=== PATIENT | female | born 1985 | race Caucasian/White ===

== ENCOUNTER → 2018-08-15 07:56 | Outpatient (CLI) | payer OTHER, SELFPAY ==
--- NOTE | 2018-08-15 | DI.US.S_ITS ---
PROCEDURE: US PELVIC COMPLETE INDICATIONS: IRREGULAR VAGINAL BLEEDING TECHNIQUE: Real-time scanning was performed of the pelvic organs, with image documentation. Additional endovaginal scanning was necessary due to incomplete visualization of the adnexal and endometrial structures by transabdominal scanning. COMPARISON: [facility], , PELVIC COMPLETE, 12/17/2015, 7:37. FINDINGS: Transabdominal scanning: Limited scanning through the kidneys shows no hydronephrosis. No pathologic free abdominal or pelvic fluid. Endovaginal scanning: Uterus: Uterus is normal in size at 7.4 x 6.3 x 5.6 cm. The endometrium measures 15.7 mm in combined thickness. Ovaries: Normal ovaries bilaterally measuring 3.8 x 2.2 x 2.3 cm on the right and 3.4 x 2.0 x 3.2 cm and the left. No adnexal masses seen. IMPRESSION: 1. Prominence of the endometrial complex. Recommend short term follow pelvic ultrasound in 6-12 weeks to assess for interval thinning. Dictated by: Fidel GOODMAN Interpreted: Aileen Maldonado MD on 08/15/2018 at 8:41 Approved by: Aileen Maldonado M.D. on 08/16/2018 at 11:48
== END ==
PROVIDERS: Family Provider Family Medicine; PCP Family Medicine; Visit Provider Family Medicine
DX: N92.6 Irregular menstruation, unspecified (principal)
CPT/HCPCS: 76830; 76856

== ENCOUNTER → 2018-09-10 07:19 | Outpatient (CLI) | payer OTHER, SELFPAY ==
--- NOTE | 2018-09-10 | DI.US.S_ITS ---
PROCEDURE: US PELVIC COMPLETE INDICATIONS: DYSFUNCTIONAL UTERINE BLEEDING TECHNIQUE: Real-time scanning was performed of the pelvic organs, with image documentation. Additional endovaginal scanning was necessary due to incomplete visualization of the adnexal and endometrial structures by transabdominal scanning. COMPARISON: [facility], , US PELVIC COMPLETE, 08/15/2018, 8:05. FINDINGS: Transabdominal scanning: Kidneys not evaluated. No pathologic free abdominal or pelvic fluid. Endovaginal scanning: Uterus: Uterus is normal in size at 8.3 x 4.9 x 6.6 cm. The endometrium measures 7.9 mm in combined thickness. Ovaries: Ovaries normal bilaterally, with simple cyst involving the left ovary measuring 23 mm. IMPRESSION: 1. Normal endometrial thickness measuring 8.0 mm. Dictated by: Fidel Fritz [facility] Interpreted: Haris Borja MD on 09/10/2018 at 8:17 Approved by: Haris Borja M.D. on 09/10/2018 at 14:19
== END ==
PROVIDERS: Family Provider Family Medicine; PCP Family Medicine; Visit Provider Family Medicine
DX: N93.8 Other specified abnormal uterine and vaginal bleeding (principal)
CPT/HCPCS: 76830; 76856

== ENCOUNTER → 2019-05-21 10:22 | Outpatient (CLI) | payer OTHER, SELFPAY | PROVIDERS: Family Provider Family Medicine; PCP Family Medicine | DX: Z23 Encounter for immunization (principal) | CPT/HCPCS: 90471; 90686 ==

== ENCOUNTER → 2020-02-05 07:14 | Outpatient (CLI) | payer OTHER, SELFPAY ==
--- NOTE | 2020-02-05 | DI.US.S_ITS ---
PROCEDURE: US OB <= 14 WEEKS FETUS INDICATIONS: DATES OUTSIDE/PRIOR DATING DATA: Last menstrual period (LMP): 12/16/19 LMP-based estimated date of delivery (DAVID): 09/21/20 . First dating scan (date and location): This study, 02/05/20 . Estimated date of delivery (DAVID) from first dating scan: 09/21/20 . TECHNIQUE: Real-time scanning was performed of the fetus and maternal pelvic organs, with image documentation. Endovaginal scanning was also performed to better visualize the fetus and maternal ovaries. COMPARISON: None. FINDINGS: Embryo: 1.1 cm crown-rump length, cardiac activity at 147 beats per minute was observed. Measurement variability in dating: +/- 4 weeks by LMP, +/- 7 days by mean sac diameter (use before 6 weeks gestation if crown-rump length not able to be measured), +/- 5 days by crown-rump length (up to 8 weeks 6 days gestation), +/- 7 days by crown-rump length (up to 13 weeks 6 days gestation). Maternal organs: Ovaries contain bilateral complex cysts containing low level internal echoes, measuring up to 2.8 cm on the right and 2.6 x 2.7 x 5.0 cm on the left. Limited images through the kidneys demonstrate no hydronephrosis. IMPRESSION: Single living intrauterine gestation with projected date of delivery centered on 09/21/20. Note is made of bilateral complex ovarian cysts, containing low-level internal echoes. Attention to confirm resolution of these structures over the course of the is recommended. Dictated by: Haris Borja M.D. on 02/05/2020 at 9:58 Approved by: Haris Borja M.D. on 02/05/2020 at 10:02
== END ==
PROVIDERS: Family Provider Family Medicine; PCP Family Medicine; Referring Provider Family Medicine; Visit Provider Family Medicine
DX: Z36.87 Encounter for antenatal screening for uncertain dates (principal); O34.81 Maternal care for other abnormalities of pelvic organs, first trimester; N83.292 Other ovarian cyst, left side; N83.291 Other ovarian cyst, right side; Z3A.01 Less than 8 weeks gestation of pregnancy
CPT/HCPCS: 76801; 76817

== ENCOUNTER 2020-05-04 07:50 | Emergency (ER) | payer OTHER, SELFPAY ==
[2020-05-04] VITALS (14 sets, daily range): BP systolic 88–121; BP diastolic 60–76; PULSE 85–131; RESP 11–39; TEMP 36.8; O2SAT 98–100; BMI 26.5
--- NOTE | 2020-05-04 08:24 | ED.ARRPALP ---
HPI - Arrhythmia/Palpitations General Chief Complaint: Arrhythmia/Palpitations Stated Complaint: sent by fanny for cardiac workup,20 week preg Time Seen by Provider: 05/04/20 08:10 Source: patient Mode of arrival: Ambulatory Limitations: no limitations History of Present Illness HPI narrative: Patient works at this hospital. Patient is 20 weeks . Patient is and a5. Primary care doctors many sent patient here for complaints of palpitations/dizziness that occurred at 6:20 a.m. this morning. Patient feels better. Patient states her heart rate was 210 at 1 point. She has a apple watch with cardiac/heart beat monitoring. Patient states feels much better now. Heart rate 125. Patient states has been progressing well. No preeclampsia. Patient denies any history of high blood pressure or hypercholesteremia. No history arrhythmias. No family history of arrhythmias. Patient denies any history of PE or DVTs. No thyroid problems. Has not been sick. No nausea vomiting diarrhea. Keeps herself very well hydrated. No abdominal pain. Patient states feels baby still moving. No vaginal discharge fluid leak or vaginal bleeding. No back pain no chest pain no abdominal pain. No syncope. One week ago had 1 episode of dizziness and felt very faint, no syncope. Reviewed with patient differential for tachycardia. At this time she does not want to do CT scan imaging or radiographic imaging is not indicated. Does not want exposure radiation for baby. Related Data Home Medications Medication Instructions Recorded Confirmed Vitamins (PRENAVITE) 1 tab PO QDAY #0 07/04/16 12/04/17 Previous Rx's Medication Instructions Recorded docusate sodium 250 mg PO DAILY #30 cap 12/05/17 ibuprofen 600 mg PO Q6HR PRN #40 tab 12/05/17 Allergies Allergy/AdvReac Type Severity Reaction Status Date / Time No Known Drug Allergies Allergy Verified 12/04/17 03:17 Review of Systems Review of Systems Narrative: GENERAL: Denies chills, fatigue, malaise, fever, sweats. HEENT: Denies sinus pain, ear pain, sore throat, difficulty swallowing, dizziness. RESPIRATORY: Denies dyspnea, cough, wheezing, hemoptysis, sputum. CARDIOVASCULAR: Denies chest pain, complains palpitations, denies orthopnea, edema, GASTROINTESTINAL: Denies nausea, vomiting, abdominal pain, diarrhea, constipation, melena. : Denies dysuria, frequency, incontinence, hematuria, urinary retention. MUSCULOSKELETAL: denies weakness, joint pain, or bony pain SKIN: Denies rash, skin lesions NEUROLOGIC: Denies weakness, headache, numbness, change in speech, confusion, seizures, incoordination. PSYCHIATRIC: No concerning psychosocial issues. ROS Unobtainable: All systems reviewed & are unremarkable except as noted in HPI and below Patient History Social History number of children: 0 household members: spouse lives independently: Yes caregiver/support person: Yes housing: house pets and animals: Yes education level: college occupational status: employed Smoking Status: Never smoker alcohol intake: never Smoking Status: Never smoker alcohol intake frequency: 0-2 drinks per day Substance Use Type: does not use Exam Narrative Exam Narrative: GENERAL: patient appears stated age. Well-nourished, well-developed patient, in no distress, not toxic HEAD: Atraumatic. Normocephalic. EYES: Pupils equal round ENT: Mucous membranes moist/oral NECK: Trachea midline. Non tender, no thyromegaly CARDIOVASCULAR: Tachycardic, Regular rate and rhythm without murmurs, gallops, or rubs. RESPIRATORY: Clear to auscultation. Breath sounds equal bilaterally. No wheezes, rales, or rhonchi. GASTROINTESTINAL: Abdomen soft, non-tender, nondistended. EXTREMITIES: No edema or joint tenderness. BACK: Nontender without deformity or crepitance. No flank tenderness. NEURO: AOx4. SKIN: No rash or erythema of visible areas PSYCH: Not anxious, is cooperative Initial Vital Signs Initial Vital Signs: Vital Signs Temperature 98.2 F 05/04/20 07:59 Pulse Rate 123 H 05/04/20 07:59 Respiratory Rate 16 05/04/20 07:59 Blood Pressure 121/76 05/04/20 07:59 Pulse Oximetry 100 05/04/20 07:59 Course Course Course Narrative: Time 11:05 a.m.. Spoke with patient and . They are comfortable with plan for follow-up. Orders Ordered: ED Orders 05/04/20 08:59 Complete Blood Count AUTO DIFF Stat Comprehensive Metabolic Panel Stat Magnesium Stat Partial Thromboplastin Time Stat Prothrombin Time INR Stat Thyroid Stimulating Hormone Stat Troponin & CK Cardiac Panel Stat Reevaluation(s) Reevaluation #1: Heart rate 99 sinus. Blood pressure 96/63. Patient states that is her baseline blood pressure. Patient has no complaints of palpitations dizziness nausea sweating or chest pain. No numbness tingling or weakness. Time: 10:10 Reevaluation #2: Orthostatics completed. Patient is not not dizzy. Again, patient states blood pressure is her baseline Time: 11:02 Consultations Consultation #1: Spoke with cardiology dr jefferson, patient can follow-up with primary care/after swimming, needs a Holter monitor and echocardiogram outpatient basis. No indication for admission at this time. Time: 10:11 Consultation #2: Spoke with primary care, Dr. Live, she states blood pressure is patient's baseline and is expected in . Patient likely had SVT according to Dr. Live, she will arrange outpatient Holter monitor and echocardiogram. No medications indicated this time. No D-dimer to be done as clinically not pulmonary embolism or DVT Time: 11: Vital Signs Vital signs: Vital Signs - 8 hr 05/04/20 07:59 05/04/20 08:13 05/04/20 08:30 Temperature 98.2 F Pulse Rate 123 H 131 H 124 H Pulse Rate [Orthostatic Lying] Pulse Rate [Orthostatic Sitting] Pulse Rate [Orthostatic Standing] Respiratory Rate 16 Blood Pressure 121/76 101/65 Blood Pressure [Orthostatic Lying] Blood Pressure [Orthostatic Sitting] Blood Pressure [Orthostatic Standing] Pulse Oximetry 100 100 98 05/04/20 09:26 05/04/20 09:30 05/04/20 09:35 Temperature Pulse Rate 117 H 91 H 95 H Pulse Rate [Orthostatic Lying] Pulse Rate [Orthostatic Sitting] Pulse Rate [Orthostatic Standing] Respiratory Rate 16 15 Blood Pressure 104/60 Blood Pressure [Orthostatic Lying] Blood Pressure [Orthostatic Sitting] Blood Pressure [Orthostatic Standing] Pulse Oximetry 100 100 100 05/04/20 09:36 05/04/20 10:00 05/04/20 10:30 Temperature Pulse Rate 97 H 94 H Pulse Rate [Orthostatic Lying] Pulse Rate [Orthostatic Sitting] Pulse Rate [Orthostatic Standing] Respiratory Rate 11 L 13 Blood Pressure 104/60 96/63 88/61 L Blood Pressure [Orthostatic Lying] Blood Pressure [Orthostatic Sitting] Blood Pressure [Orthostatic Standing] Pulse Oximetry 100 100 05/04/20 10:45 05/04/20 10:46 05/04/20 10:47 Temperature Pulse Rate 97 H 106 H 109 H Pulse Rate [Orthostatic Lying] Pulse Rate [Orthostatic Sitting] Pulse Rate [Orthostatic Standing] Respiratory Rate 14 36 H 39 H Blood Pressure 90/60 99/69 100/70 Blood Pressure [Orthostatic Lying] Blood Pressure [Orthostatic Sitting] Blood Pressure [Orthostatic Standing] Pulse Oximetry 100 100 100 05/04/20 10:49 05/04/20 11:00 Temperature Pulse Rate 85 Pulse Rate [Orthostatic Lying] 96 H Pulse Rate [Orthostatic Sitting] 107 H Pulse Rate [Orthostatic Standing] 110 H Respiratory Rate 21 Blood Pressure Blood Pressure [Orthostatic Lying] 90/60 Blood Pressure [Orthostatic Sitting] 99/69 Blood Pressure [Orthostatic Standing] 100/70 Pulse Oximetry 100 MDM - Arrhythmia/Palpitations Differential Diagnosis Differential diagnosis: Likely palpitations, sinus tachycardia, artial flutter, supraventricular tachycardia and WPW Lab Data Attestation: I reviewed the patient's lab results. Result diagrams: 05/04/20 08:59 05/04/20 08:59 Labs: Lab Results 05/04/20 05/04/20 05/04/20 Range/Units 08:59 08:59 08:59 WBC 6.7 (4.5-11.0) X10^3/uL RBC 4.09 (4.0-5.2) X10^6/uL Hgb 13.1 (12.0-16.0) g/dL Hct 37.3 (36-46) % MCV 91.1 (80-100) fL MCH 32.1 (26-34) PG MCHC 35.2 (30-36) % RDW 13.0 (11.6-14.8) % Plt Count 204 (150-400) X10^3/uL Neut % (Auto) 70.4 (50-75) % Lymph % (Auto) 18.4 L (25-40) % [place] % (Auto) 10.2 (3-14) % Eos % (Auto) 0.6 L (2-4) % Baso % (Auto) 0.4 (0-2) % Neut # (Auto) 4700 (5820-1533) /uL Lymph # (Auto) 1200 (8488-4602) /uL Assumption # (Auto) 700 (0-900) /uL Eos # (Auto) 0 (0-450) /uL Baso # (Auto) 0 (0-100) /uL PT 11.2 (10.1-12.7) SECONDS INR 1.0 (0.9-1.3) APTT 31 (26.4-36.2) SECONDS Sodium 136 L (137-145) mmol/L Potassium 3.7 (3.4-5.1) mmol/L Chloride 107 (98-107) mmol/L Carbon Dioxide 25 (22-32) mmol/L BUN 5 L (7-17) mg/dL Creatinine 0.43 L (0.52-1.04) mg/dL Estimated GFR > 60.0 (>60) mL/min BUN/Creatinine Ratio 11.6 (6-22) Glucose 84 (70-100) mg/dL Calcium 8.6 (8.4-10.2) mg/dL Magnesium 1.8 (1.6-2.3) mg/dL Total Bilirubin 0.8 (0.2-1.3) mg/dL AST 24 (14-36) IU/L ALT 13 (<35) IU/L Alkaline Phosphatase 49 (38-126) U/L Total Creatine Kinase 102 (30-135) U/L CK-MB (CK-2) 1.85 (<2.37) ng/mL CK-MB (CK-2) Rel Index 1.8 (1.5-5.0) % Troponin I 0.026 (0.01-0.034) ng/mL Total Protein 6.7 (6.3-8.2) g/dL Albumin 3.7 (3.5-5.0) g/dL Globulin 3.0 (1.7-4.1) g/dL Albumin/Globulin Ratio 1.2 (1.0-2.8) TSH (0.47-4.68) uIU/mL 05/04/20 Range/Units 08:59 WBC (4.5-11.0) X10^3/uL RBC (4.0-5.2) X10^6/uL Hgb (12.0-16.0) g/dL Hct (36-46) % MCV (80-100) fL MCH (26-34) PG MCHC (30-36) % RDW (11.6-14.8) % Plt Count (150-400) X10^3/uL Neut % (Auto) (50-75) % Lymph % (Auto) (25-40) % Assumption % (Auto) (3-14) % Eos % (Auto) (2-4) % Baso % (Auto) (0-2) % Neut # (Auto) (3962-7806) /uL Lymph # (Auto) (3397-0033) /uL Assumption # (Auto) (0-900) /uL Eos # (Auto) (0-450) /uL Baso # (Auto) (0-100) /uL PT (10.1-12.7) SECONDS INR (0.9-1.3) APTT (26.4-36.2) SECONDS Sodium (137-145) mmol/L Potassium (3.4-5.1) mmol/L Chloride (98-107) mmol/L Carbon Dioxide (22-32) mmol/L BUN (7-17) mg/dL Creatinine (0.52-1.04) mg/dL Estimated GFR (>60) mL/min BUN/Creatinine Ratio (6-22) Glucose (70-100) mg/dL Calcium (8.4-10.2) mg/dL Magnesium (1.6-2.3) mg/dL Total Bilirubin (0.2-1.3) mg/dL AST (14-36) IU/L ALT (<35) IU/L Alkaline Phosphatase (38-126) U/L Total Creatine Kinase (30-135) U/L CK-MB (CK-2) (<2.37) ng/mL CK-MB (CK-2) Rel Index (1.5-5.0) % Troponin I (0.01-0.034) ng/mL Total Protein (6.3-8.2) g/dL Albumin (3.5-5.0) g/dL Globulin (1.7-4.1) g/dL Albumin/Globulin Ratio (1.0-2.8) TSH 1.94 (0.47-4.68) uIU/mL ECG Data Attestation: I personally reviewed and interpreted this ECG as follows: Interpretation: Sinus tachycardia, ventricular rate 113. No ST elevation or depression. Otherwise normal EKG. No comparison EKG MDM Narrative Medical decision making narrative: Appropriate for discharge home. Patient asymptomatic and not tachycardic at time of discharge. Reviewed case with Cardiology and primary care for outpatient follow-up and testing for Holter monitor and echocardiogram. Discharge Plan Departure Patient Disposition: Home Clinical Impression: Palpitations Discharge Date/Time: 05/04/20 11:09 Instructions: DI for Arrhythmias Activity Restrictions/Additional Instructions: Call your family physician, Dr. Live, today for office appointment this week for scheduling for Holter monitor and echocardiogram. Return if worse. Return if any questions or concerns or chest pain palpitations dizziness or fainting. Prescriptions: No Action Vitamins (PRENAVITE) 1 tab PO QDAY Qty: 0 RF: 0 ibuprofen 600 mg Tablet 600 mg PO Q6HR PRN (Reason: Mild Pain) Qty: 40 RF: 0 docusate sodium 250 mg Capsule 250 mg PO DAILY Qty: 30 RF: 0 Referrals: Peggy Live MD [Primary Care Provider] -
[2020-05-04 09:06] LABS: Add Manual Diff / Slide Review NO; Basophils Absolute Auto 0 /uL (0-100); Basophils Percent Auto 0.4 % (0-2); Eosinophils Absolute Auto 0 /uL (0-450); Eosinophils Percent Auto 0.6 % (2-4); Hematocrit 37.3 % (36-46); Hemoglobin 13.1 g/dL (12.0-16.0); Lymphocytes Absolute Auto 1200 /uL (1100-4500); Lymphocytes Percent Auto 18.4 % (25-40); Mean Corpuscular HGB Conc 35.2 % (30-36); Mean Corpuscular Hemoglobin 32.1 PG (26-34); Mean Corpuscular Volume 91.1 fL (80-100); Monocytes Absolute Auto 700 /uL (0-900); Monocytes Percent Auto 10.2 % (3-14); Neutrophils Absolute Auto 4700 /uL (1500-7000); Neutrophils Percent Auto 70.4 % (50-75); Platelet Count 204 X10^3/uL (150-400); Red Blood Cell Count 4.09 X10^6/uL (4.0-5.2); White Blood Cell Count 6.7 X10^3/uL (4.5-11.0)
[2020-05-04 09:12] LABS: Prothrombin Time 11.2 SECONDS (10.1-12.7)
[2020-05-04 09:15] LABS: PTT Partial Thromboplastin Tim 31 SECONDS (26.4-36.2)
[2020-05-04 09:16] LABS: Alanine Aminotransferase 13 IU/L (<35); Albumin 3.7 g/dL (3.5-5.0); Albumin Globulin Ratio 1.2 (1.0-2.8); Alkaline Phosphatase 49 U/L (38-126); Aspartate Aminotransferase 24 IU/L (14-36); BUN Creatinine Ratio 11.6 (6-22); Bilirubin Total 0.8 mg/dL (0.2-1.3); Blood Urea Nitrogen 5 mg/dL (7-17); Calcium 8.6 mg/dL (8.4-10.2); Carbon Dioxide 25 mmol/L (22-32); Chloride 107 mmol/L (98-107); Creatine Kinase 102 U/L (30-135); Estimated Glomerular Filt Rate > 60.0 mL/min (>60); Glucose 84 mg/dL (70-100); HEMOLYSIS < 15 (0-50); Magnesium 1.8 mg/dL (1.6-2.3); Potassium 3.7 mmol/L (3.4-5.1); Sodium 136 mmol/L (137-145); Total Protein 6.7 g/dL (6.3-8.2)
[2020-05-04 09:28] LABS: Troponin I 0.026 ng/mL (0.01-0.034)
[2020-05-04 09:32] LABS: CKMB % Relative Index 1.8 % (1.5-5.0); Creatine Kinase MB 1.85 ng/mL (<2.37)
[2020-05-04 09:54] LABS: Thyroid Stimulating Hormone 1.94 uIU/mL (0.47-4.68)
== END 2020-05-04 11:09 | disposition home or self-care (01) ==
PROVIDERS: Emergency Provider Emergency Medicine; Family Provider Family Medicine; PCP Family Medicine
DX: R00.2 Palpitations (principal); Z3A.20 20 weeks gestation of pregnancy
CPT/HCPCS: 36415; 80053; 82550; 82553; 83735; 84443; 84484; 85025; 85610; 85730; 93005; 99283; 99284

== ENCOUNTER → 2020-05-07 09:23 | Outpatient (CLI) | payer OTHER, SELFPAY ==
--- NOTE | 2020-05-07 | DI.US.S_ITS ---
PROCEDURE: US OB >= 14 WEEKS FETUS INDICATIONS: SCAN OUTSIDE/PRIOR DATING DATA: Last menstrual period (LMP): 12/16/2019 LMP-based estimated date of delivery (DAVID): 09/21/2020 First dating scan (date and location): 02/05/2020 Estimated date of delivery (DAVID) from first dating scan: 09/21/2020 TECHNIQUE: Real-time scanning was performed of the fetus, with image documentation and biometric measurements. Endovaginal scanning: Not done COMPARISON: [facility], OB <= 14 WEEKS FETUS, 02/05/2020, 7:25. FINDINGS: General: A single live intrauterine gestation is present. Presentation: Variable. Placenta: Placental position is posterior , without previa. Amniotic fluid index: 15.3 cm, normal range is 5-24 cm. heart rate: 157 beats per minute. Maternal cervical canal: 5.6 cm long. Normal lower limit is 2.5 cm. biometrics: Biparietal diameter: 4.6 cm equals 20 weeks 0 days Head circumference: 17.5 cm equals 20 weeks 0 days Abdominal circumference: 16 cm equals 21 weeks 1 day Femur length: 3.3 cm equals 20 weeks 0 days Estimated gestational age from initial scan: 20 weeks 3 days Composite gestational age from present scan: 20 weeks 2 days Estimated weight and percentile: 362 g, 53rd percentile Measurement variability for biometric dating: +/- 7 days from 14 weeks to 15 weeks 6 days gestation, +/- 10 days from 16 weeks to 21 weeks 6 days gestation, +/- 2 weeks from 22 weeks to 27 weeks 6 days gestation, +/- 3 weeks for 28 weeks gestation or later. weight reference: 4500 g or EFW >90/95% is considered macrosomia or large for gestational age. EFW <10% is small for gestational age. EFW 5% or less is considered intra-uterine growth restriction. Anatomic survey: Neuro: Ventricles are non-dilated at less than 10 mm. Cisterna magna is normal at 3-11 mm. Cerebellum is normal in size and morphology. Nuchal skin fold: Normal at less than 6 mm between 14-21 weeks gestational age. Face: Nose and lips, facial profile are normal. Spine: No evidence for spina bifida. Heart: 4-chambered heart is present, with normal ventricular outflow tracts. Diaphragm: Diaphragm is intact. Stomach: Left-sided stomach is present. Kidneys: No hydronephrosis. Normal is less than 5 mm in 2nd trimester, less than 7 mm in 3rd trimester. Cord: 3-vessel cord has orthotopic insertion. Bladder: Normal in size. Extremities: All 4 extremities identified. IMPRESSION: No anatomic abnormalities are identified. Normal interval growth when compared to the prior ultrasound examination. Dictated by: Guicho Bettencourt M.D. on 05/07/2020 at 10:35 Approved by: Guicho Bettencourt M.D. on 05/07/2020 at 10:36
== END ==
PROVIDERS: Family Provider Family Medicine; PCP Family Medicine; Referring Provider Family Medicine; Visit Provider Family Medicine
DX: Z36.89 Encounter for other specified antenatal screening (principal); Z3A.20 20 weeks gestation of pregnancy
CPT/HCPCS: 76811

== ENCOUNTER → 2020-05-12 03:31 | Outpatient (CLI) | payer OTHER, SELFPAY | PROVIDERS: Family Provider Family Medicine; PCP Family Medicine; Referring Provider Internal Medicine; Visit Provider Internal Medicine | DX: Z23 Encounter for immunization (principal) | CPT/HCPCS: 90471; 90686 ==

== ENCOUNTER → 2020-05-21 08:14 | Outpatient (CLI) | payer OTHER, SELFPAY ==
--- NOTE | 2020-05-21 | DI.ECHO.S_ITS ---
[facility]+ [facility] +---------+ : : [address] : : : : [id number] : : : : Phone: [phone] Echocardiogram Report + + :Name: FABIANO THORPE Study Date: 05/21/2020 Height: 70 in : :[facility] Weight: 138 lb : : Gender: Female BSA: 1.8 m2 : :: 1985 Age: 34 yrs BP: 101/74 mmHg: : Performed By: Renee Robison : :Referring: MERNA EMERY : + + Interpretation Summary The left ventricle is normal in size and wall thickness. Left ventricular systolic function appears normal without focal wall motion abnormalities. The ejection fraction is estimated to be 60-65%. The right ventricle is normal in size and function. Pulmonary artery pressures cannot be estimated because of the lack of a measurable TR jet velocity but the IVC suggests a CVP of around 3 mmHg. The left atrium is mildly dilated. Right atrial size is normal. There is no significant valvular heart disease. The aortic root is normal size. Procedure: A two-dimensional transthoracic echocardiogram with color flow and Doppler was performed. The study quality was technically adequate. There is no prior echocardiogram noted for this patient. The heart rate ranged between 80-105 bpm during the study. Left Ventricle: The left ventricle is normal in size and wall thickness. Left ventricular systolic function appears normal without focal wall motion abnormalities. The ejection fraction is estimated to be 60-65%. Diastolic parameters suggest probable normal left ventricular diastolic function and normal filling pressures. Right Ventricle: The right ventricle is normal in size and function. Atria: The left atrium is mildly dilated. Right atrial size is normal. There is no Doppler evidence for an interatrial shunt. Mitral Valve: The mitral valve is normal in structure and function. There is trace mitral regurgitation. Aortic Valve: The aortic valve is trileaflet. The aortic valve opens well. There is no aortic valve stenosis. No aortic regurgitation is present. Tricuspid Valve: The tricuspid valve is normal in structure and function. Pulmonary artery pressures cannot be estimated because of the lack of a measurable TR jet velocity but the IVC suggests a CVP of around 3 mmHg. There is trace tricuspid regurgitation. Pulmonic Valve: The pulmonic valve leaflets are thin and pliable; valve motion is normal. There is no pulmonic valvular regurgitation. There is no significant valvular heart disease. Great Vessels: The aortic root is normal size. The ascending aorta could not be visualized. The IVC is of normal diameter and collapses greater than 50% with a sniff. This suggests a low right atrial pressure of 3 mm Hg. Pericardium/ Pleura There is no pericardial effusion. There is no pleural effusion. MMode/2D Measurements & Calculations LVIDd: 4.8 cm LVOT diam: 2.0 cm LVIDs: 3.1 cm Ao root diam: 3.2 cm FS: 34.0 % Ao Arch Diam (Prox Trans): 2.7 cm EPSS: 0.48 cm IVSd: 0.49 cm LVPWd: 0.77 cm LV gonzalez. diameter/BSA (cm/m^2): 2.7 LV sys. diameter/BSA (cm/m^2): 1.8 LA A2 area: 19.8 cm2 RA long axis: 4.5 cm LA A4 area: 19.4 cm2 RA area: 13.1 cm2 LA length (vol): 5.2 cm RA vol: 32.3 ml LA vol: 63.3 ml RA : 18.1 ml/m2 LA vol index: 35.5 ml/m2 IVC diam: 1.5 cm RVD1 (basal): 3.0 cm TAPSE: 2.7 cm Doppler Measurements & Calculations Ao V2 max: 161.9 cm/sec LVOT Max Jonh: 136.3 cm/sec Ao V2 mean: 104.7 cm/sec LV V1 max P.4 mmHg Ao max P.5 mmHg LV V1 VTI: 26.2 cm Ao mean P.2 mmHg ZEUS(I,D): 2.5 cm2 Ao V2 VTI: 31.1 cm ZEUS(V,D): 2.5 cm2 sev ratio: 0.84 ZEUS indexed to BSA (cm^2/m^2): 1.4 MV E max jonh: 93.4 cm/sec PA V2 max: 93.6 cm/sec MV A max jonh: 67.8 cm/sec PA V2 mean: 56.4 cm/sec MV E/A: 1.4 PA mean P.5 mmHg Med Peak E' Jonh: 15.2 cm/sec PA pr(Accel): 19.9 mmHg E/E' med: 6.1 Lat Peak E' Jonh: 21.3 cm/sec E/E' lat: 4.4 E/e' average: 5.3 MV dec time: 0.16 sec SV(LVOT): 78.9 ml Reading Physician:02:14 PM
== END ==
PROVIDERS: Family Provider Family Medicine; PCP Family Medicine; Referring Provider Family Medicine; Visit Provider Family Medicine
DX: I47.1 Supraventricular tachycardia (principal)
CPT/HCPCS: 93306

== ENCOUNTER → 2020-08-13 12:44 | Outpatient (CLI) | payer OTHER, SELFPAY ==
--- NOTE | 2020-08-13 | DI.US.S_ITS ---
PROCEDURE: US OB LIMITED INDICATIONS: SIZE LESS THAN DATES OUTSIDE/PRIOR DATING DATA: Last menstrual period (LMP): 12/16/2019. LMP-based estimated date of delivery (DAVID): 09/21/2020. First dating scan (date and location): 02/05/2020. Estimated date of delivery (DAVID) from first dating scan: 10/01/2020. TECHNIQUE: Real-time scanning was performed of the fetus, with image documentation and biometric measurements. Endovaginal scanning: No COMPARISON: [facility], OB LIMITED, 11/30/2017, 11:28. [facility], OB >= 14 WEEKS FETUS, 05/07/2020, 9:34. FINDINGS: General: A single living intrauterine gestation is present. Presentation: Vertex. Placenta: Placental position is posterior , without previa. Amniotic fluid index: 13.9 cm, normal range is 5-24 cm. heart rate: 141 beats per minute. Maternal cervical canal: 5.9 cm long. Normal lower limit is 2.5 cm. biometrics: Biparietal diameter: 34 weeks Head circumference: 36 weeks 2 days Abdominal circumference: 34 weeks 4 days Femur length: 33 weeks 5 days Estimated gestational age from initial scan: 34 weeks 3 days Composite gestational age from present scan: 34 weeks 5 days Estimated weight and percentile: 2435 g; 45th percentile Measurement variability for biometric dating: +/- 7 days from 14 weeks to 15 weeks 6 days gestation, +/- 10 days from 16 weeks to 21 weeks 6 days gestation, +/- 2 weeks from 22 weeks to 27 weeks 6 days gestation, +/- 3 weeks for 28 weeks gestation or later. weight reference: 4500 g or EFW >90/95% is considered macrosomia or large for gestational age. EFW <10% is small for gestational age. EFW 5% or less is considered intra-uterine growth restriction. IMPRESSION: 1. Holliday living intrauterine at 34 weeks 5 days based on today's ultrasound. This is concordant with the prior dating. Fetus is in the 45th percentile for weight. 2. Normal placenta and amniotic fluid. Dictated by: Fidel GOODMAN Interpreted: Dallin Mora MD on 08/13/2020 at 14:37 Approved by: Dallin Mora M.D. on 08/13/2020 at 14:57
== END ==
PROVIDERS: Family Provider Family Medicine; PCP Family Medicine; Referring Provider Family Medicine; Visit Provider Family Medicine
DX: Z34.93 Encounter for supervision of normal pregnancy, unspecified, third trimester (principal); Z3A.34 34 weeks gestation of pregnancy
CPT/HCPCS: 76815

== ENCOUNTER → 2020-08-25 20:00 | Outpatient (ROUT) | payer OTHER, SELFPAY | PROVIDERS: Family Provider Family Medicine; PCP Family Medicine; Visit Provider Family Medicine | DX: Z34.80 Encounter for supervision of other normal pregnancy, unspecified trimester (principal) | CPT/HCPCS: 87081; 87147 ==

== ENCOUNTER 2020-09-14 14:59 | Outpatient (CLI) | payer OTHER, SELFPAY | END 2020-09-14 16:25 | disposition home or self-care (01) | LOC: OB 09-15 06:40 | PROVIDERS: Family Provider Family Medicine; PCP Family Medicine; Referring Provider Family Medicine; Visit Provider Family Medicine | DX: O26.23 Pregnancy care for patient with recurrent pregnancy loss, third trimester (principal); Z3A.39 39 weeks gestation of pregnancy | CPT/HCPCS: 59025; G0378; G0379 ==

== ENCOUNTER → 2020-09-15 14:14 | Outpatient (CLI) | payer OTHER, SELFPAY ==
--- NOTE | 2020-09-15 14:15 | DI.US.S_ITS ---
PROCEDURE: US OB LIMITED INDICATIONS: SIZE LESS THAN DATES OUTSIDE/PRIOR DATING DATA: Last menstrual period (LMP): 12/16/2019. LMP-based estimated date of delivery (DAVID): 09/21/2020 . First dating scan (date and location): 02/05/2020 . Estimated date of delivery (DAVID) from first dating scan: 09/21/2020 . TECHNIQUE: Real-time scanning was performed of the fetus, with image documentation and biometric measurements. Endovaginal scanning: No COMPARISON: [facility], OB LIMITED, 08/13/2020, 13:17. FINDINGS: General: A single living intrauterine gestation is present. Presentation: Vertex. Placenta: Placental position is fundal , without previa. Amniotic fluid index: 8.4 cm, normal range is 5-24 cm. heart rate: 137 beats per minute. Maternal cervical canal: Not well seen biometrics: Biparietal diameter: 36 weeks 3 days Head circumference: 39 weeks 5 days Abdominal circumference: 37 weeks 4 days Femur length: 40 weeks 1 day Estimated gestational age from initial scan: 39 weeks 1 day Composite gestational age from present scan: 38 weeks 3 days Estimated weight and percentile: 3444 g, 48th percentile Measurement variability for biometric dating: +/- 7 days from 14 weeks to 15 weeks 6 days gestation, +/- 10 days from 16 weeks to 21 weeks 6 days gestation, +/- 2 weeks from 22 weeks to 27 weeks 6 days gestation, +/- 3 weeks for 28 weeks gestation or later. weight reference: 4500 g or EFW >90/95% is considered macrosomia or large for gestational age. EFW <10% is small for gestational age. EFW 5% or less is considered intra-uterine growth restriction. Other: Not applicable. IMPRESSION: Single living IUP redemonstrated and interval growth is normal. Dictated by: Fidel Fritz [facility] Interpreted: Celia Sparrow MD on 09/15/2020 at 16:36 Approved by: Celia Sparrow M.D. on 09/15/2020 at 16:42
== END ==
PROVIDERS: Family Provider Family Medicine; PCP Family Medicine; Referring Provider Family Medicine; Visit Provider Family Medicine
DX: Z36.4 Encounter for antenatal screening for fetal growth retardation (principal); Z3A.38 38 weeks gestation of pregnancy
CPT/HCPCS: 76815

== ENCOUNTER 2020-09-20 19:44 | Inpatient (IN) | payer OTHER, SELFPAY ==
[2020-09-20] MEDS: PENICILLIN G POTASSIUM 5,000,000 UNIT in DEXTROSE 5% IN WATER 250 ML IV (20:30)
[2020-09-20 20:46] LABS: Add Manual Diff / Slide Review NO; Basophils Absolute Auto 100 /uL (0-100); Basophils Percent Auto 0.8 % (0-2); Eosinophils Absolute Auto 100 /uL (0-450); Eosinophils Percent Auto 0.6 % (2-4); Hematocrit 34.4 % (36-46); Hemoglobin 11.8 g/dL (12.0-16.0); Lymphocytes Absolute Auto 1900 /uL (1100-4500); Lymphocytes Percent Auto 24.4 % (25-40); Mean Corpuscular HGB Conc 34.2 % (30-36); Mean Corpuscular Hemoglobin 30.5 PG (26-34); Mean Corpuscular Volume 89.2 fL (80-100); Monocytes Absolute Auto 1000 /uL (0-900); Monocytes Percent Auto 13.5 % (3-14); Neutrophils Absolute Auto 4700 /uL (1500-7000); Neutrophils Percent Auto 60.7 % (50-75); Platelet Count 175 X10^3/uL (150-400); Red Blood Cell Count 3.86 X10^6/uL (4.0-5.2); White Blood Cell Count 7.7 X10^3/uL (4.5-11.0)
[2020-09-20 20:58] LABS: COVID19 -Nasal RAPID Negative (Negative)
[2020-09-20] MEDS: LACTATED RINGERS 1,000 ML 100 ML IV (21:02)
[2020-09-20 21:04] VITALS: BP 127/68
[2020-09-21] MEDS: ZOLPIDEM 5 MG TABLET PO (01:06)
[2020-09-21] MEDS: PENICILLIN G POTASSIUM 3,000,000 UNIT/50 ML FROZ.PIGGY 100 UNIT IV ×4 (01:06→13:40)
[2020-09-21] MEDS: OXYTOCIN PREMIX 30 UNIT/500 ML PLAST..BAG IV (06:47)
[2020-09-21] MEDS: LACTATED RINGERS 1,000 ML 100 ML IV ×2 (13:51→15:29)
[2020-09-21] MEDS: FENT 2MCG/ML BUPIV 0.125% EPI 200 MCG/100 ML PLAST..BAG 10 MCG EPIDURAL (14:30)
--- NOTE | 2020-09-21 15:22 | PM.OBPNLAB ---
Date/Time Date Patient Seen: 09/21/20 Time Patient Seen: 15:22 Pain Control Pain control: epidural Comments: epidural not working catheter out and pt with significant pain Pelvic Exam Dilation (cm): 9 Effacement (%): 100 station: -1 Amniotic membrane status: Ruptured Comments: 09/20/20 high leak 09/21/20 clear 11am Contractions Contractions on admission: irregular Monitor mode: External Pitocin rate (mU/min): 0 Contraction pattern: Regular Contraction phase: Contraction Contraction intensity: Strong/Firm Status status: Category l Heart Rate Baseline: 120 Monitor Accelerations: Present Monitor Decelerations: Variable Monitor Variability: Moderate Assessment and Plan Assessment: active labor Plan: continuous present management Comments: replace epidural then restart pitocin pushing soon as anterior lip resolved
--- NOTE | 2020-09-21 17:14 | PM.OBPRVD ---
Events: Premature Rupture Membrane Labor & Delivery Delivery date: 09/21/20 Intrapartal Events: None Delivery augmentation: rupture of membranes and pitocin Delivery monitor: external FHT Route of delivery: L&D Laceration Description: None and Superficial Delivery repair: chromic Estimated blood loss (mL): 150 Anesthesia Type: Epidural Complications: None Narrative: identifying data: very pleasant 35-year-old at 40 weeks with EDC of 09/21/2020 presents to Labor and delivery on the day prior to delivery with complaints of possible rupture membranes. Patient had probable rupture of membranes at approximately 8:00 a.m. on 09/20/2020 and went into labor and delivery at approximately 8:00 p.m. on 09/20/2020 and AmniSure was positive. Patient was having infrequent uterine contractions and due to GBS positive she was treated with a dose of IV penicillin and then was sent home and returned 4 hours later and was admitted to the hospital. She continued to receive IV antibiotics every 4 hours. She did not have significant leakage of amniotic fluid and did not have contractions start. She was placed on IV Pitocin at approximately 6:50 a.m. this morning.She had an unremarkable other than GBS positive. Stage I: lasted 4 hours and 59 minutes patient was admitted to the hospital approximately 1:00 a.m. on date of delivery. She received her 2nd dose of IV penicillin it was matted to the hospital. Pitocin was started at 6:50 a.m.. Patient had increase in contractions as well as increased pain and artificial rupture membranes occurred at 10:50 a.m. with large amount of clear amniotic fluid. Patient was felt to be in active labor. Her total rupture membranes was 32 hours and 34 minutes. The maximum Pitocin was 14 milliunits. This was increased. Patient became increasing slightly uncomfortable and epidural was started at 2:36 p.m.. She did not have good pain control and was feeling pain on her left side. She was found to be 8-9 cm dilated. A 2nd epidural was placed and patient was comfortable throughout the remainder of stage I. external tocometer was used throughout this stage in showed initially irregular contractions but then she developed a good labor pattern after artificial rupture membranes. It was felt that she probably had a high leak and then the head sealed up the whole and and that is why artificial rupture membranes was performed. External heart monitor was used throughout stage I. Initially baseline heart rate was 125 and then decrease to upper teens 120. There was good variability throughout stage I with occasional variable decelerations and as patient became closer to complete variable decels with contraction down to the 80s or 90s and then excellent recovery with continued moderate variability. There is periods of sleep but overall variability was excellent. Stage II: lasted 37 minutes patient was noted to be complete immediately after epidural was placed. Patient did have some low blood pressures. Her baseline blood pressure is low in the upper 90s and she did go down to mid 70s. She had some sensation of trait chest heaviness at this time. Her heart rate remained normal. Patient had SVT early on in but it did not persist. She was feeling good relief and was allowed to labor down for 15 minutes as we prepared for delivery. Patient began pushing at 16 15. patient had excellent control with pushing and had good pain relief and was able to slowly consistently push and allow the baby to sit on the perineum. The head was delivered in the AMY almost direct OA position and then I felt for nuchal cord which was not present and in the anterior and posterior shoulder shoulders were easily delivered. The baby was vigorous at delivery and was placed on mom's chest. There was a very minimal amount of terminal. Meconium. External tocometer was used throughout this stage with contractions every 2-3 minutes and heart monitor was used throughout this stage showing a baseline in the 1 teens to 120s with moderate variability and variable D cells with pushing and with contractions that quickly recovered and moderate variability was maintained. Delayed cord clamping occurred for 30 seconds. Apgars were 9 at 1 minute 9 at 5 minutes and the baby's weight is pending. I attempted to straight cath prior to pushing but was unable to get the catheter into the bladder. This was repeated after delivery at approximately 75 cc of urine was obtained. Stage III lasted 4 minutes normal spontaneous vaginal delivery of an intact placenta with a just lateral to the center cord insertion. There is minimal calcifications. There was a 3 vessel cord. Estimated blood loss is 150 cc. There were no cervical or vaginal sidewall urethral or significant perineal lacerations. Patient had a skid ricky on the perineum which was repaired with 3-0 chromic with 2 sutures. Otherwise no repair indicated. Pitocin was running in once placenta was delivered. Plan for aftercare: Routine care
--- NOTE | 2020-09-21 17:32 | PM.OBHP.1 ---
OB HPI Date/Time Date of admission: 09/21/20 Date Patient Seen: 09/21/20 Time Patient Seen: 07:30 History of Present Condition Chief complaint: eval of labor : 2 Para: 1 Estimated Date of Delivery: 09/21/20 Estimated Gestational Age (weeks): 40 Narrative: Radha Curiel is a 35 year old female otherwise healthy at 40 weeks estimated gestational age with EDC of 09/21/2020 based on LMP of 12/16/2019 and a 1st trimester ultrasound. Patient had a that was complicated by 1 episode of supraventricular tachycardia and that resolved. She had a total weight gain as approximately 25 lb. Her blood pressures range from an upper 80s to 112/72. She had approximately 12 visits during her . Is she was GBS positive. She received her flu shot and tetanus shot but declined her COVID vaccine. She had cell free DNA which showed normal xy. Patient had a ZIO patch which was normal that was done in June I believe. Patient was sent to labor and delivery for suspected rupture membranes. She had trickling was unclear and sounded like it was probably urine. She was AmniSure positive. She was sent home to get her staff and come back to Labor and delivery. She was given her 1st dose of IV penicillin 1st. and then returned was admitted at 1:00 a.m. on the date of delivery. She did not have significant further leakage. She had no other changes. She had no headaches or swelling or abdominal pain or bloody show. History of Present care: good care Dating criteria: LMP confirmed by 1st trimester US Ultrasounds: normal 1st trimester US and normal mid trimester US Medical complications: cardiovascular Narrative: One brief episode of paroxysmal supraventricular tachycardia. Patient never was medicated for this and did not have any further problems. This was in 2nd trimester or early 3rd trimester Preadmission Labs Blood type: O (+) positive -: Antibody screen: negative, GBS status: positive, HBsAG: negative, HIV: negative, HSV 1: negative, HSV 2: negative and RPR/VDLR: negative -: Chlamydia screen: not detected and Gonorrhea screen: not detected -: Rubella: immune and Varicella: immune HCT: 35.7 HCAB: negative PAP: Normal Cell-free DNA: normal XY Urine: negative 1 hr GTT: 130 Prior (ies) History: 1. 11/17/2014 spontaneous miscarriage at 6 weeks 2. 01/21/2015 at 6 weeks spontaneous miscarriage 3. 02/22/2016 spontaneous miscarriage at 6 weeks 4. 12/04/2017 40 weeks and 4 days normal spontaneous vaginal delivery of a viable female weighing 7 lb 11 oz named [facility] at [facility] with epidural Evaluation Evaluation Laboratory results: Laboratory Tests 09/20/20 09/20/20 09/20/20 20:30 20:30 20:30 WBC 7.7 RBC 3.86 L Hgb 11.8 L Hct 34.4 L MCV 89.2 MCH 30.5 MCHC 34.2 RDW 13.0 Plt Count 175 Neut % (Auto) 60.7 Lymph % (Auto) 24.4 L [place] % (Auto) 13.5 Eos % (Auto) 0.6 L Baso % (Auto) 0.8 Neut # (Auto) 4700 Lymph # (Auto) 1900 [place] # (Auto) 1000 H Eos # (Auto) 100 Baso # (Auto) 100 SARS-CoV-2 (PCR) Negative Blood Type O Positive Antibody Screen Negative [facility] Social History (Updated 09/21/20 @ 17:41 by Peggy Live MD) number of children: 1 household members: spouse lives independently: Yes caregiver/support person: Yes housing: house pets and animals: Yes education level: college occupational status: employed current occupational exposures/hazards: No Smoking Status: Never smoker alcohol intake: never Meds Home Medications and Allergies Home Medications Medication Instructions Recorded Confirmed Type Vitamins (PRENAVITE) 1 tab PO QDAY #0 07/04/16 09/21/20 History docusate sodium 250 mg PO DAILY #30 cap 12/05/17 09/21/20 Rx Allergies Allergy/AdvReac Type Severity Reaction Status Date / Time No Known Drug Allergies Allergy Verified 12/04/17 03:17 Review of Systems Review of Systems Narrative: Review of systems are negative other than as in HPI Exam Vital Signs (past 8 hours): patient alert and oriented x3 HEENT: Unremarkable neck: Supple without thyromegaly chest: Clear to auscultation without wheezes rhonchi or crackles cor: Regular rate and rhythm without murmur abdomen: Positive bowel sounds, soft, nontender, gravid, vertex, estimated weight 7 half to 8 lb extremities: No edema, DTRs intact pelvic exam shows cervix is 2 cm 60% effaced, -2 Objective Labs Result Diagrams: 09/20/20 20:30 Labs: Laboratory Results - last 24 hr 09/20/20 09/20/20 09/20/20 20:30 20:30 20:30 WBC 7.7 RBC 3.86 L Hgb 11.8 L Hct 34.4 L MCV 89.2 MCH 30.5 MCHC 34.2 RDW 13.0 Plt Count 175 Neut % (Auto) 60.7 Lymph % (Auto) 24.4 L [place] % (Auto) 13.5 Eos % (Auto) 0.6 L Baso % (Auto) 0.8 Neut # (Auto) 4700 Lymph # (Auto) 1900 [place] # (Auto) 1000 H Eos # (Auto) 100 Baso # (Auto) 100 SARS-CoV-2 (PCR) Negative Blood Type O Positive Antibody Screen Negative Assessment and Plan Assessment and Plan Assessment and Plan narrative: 35-year-old at 40 weeks estimated gestational age with rupture of membranes. She has received 3 doses of IV penicillin thus far. We will give begin Pitocin and will a continue to monitor with external tocometer and heart monitor. She will receive a epidural when she becomes uncomfortable. We will continue with IV penicillin for treatment of GBS positive and prolonged rupture membranes. tracing currently category 1 glucose tolerance test 130 O positive, rubella immune routine care
[2020-09-21] MEDS: IBUPROFEN 600 MG TABLET PO (18:49)
[2020-09-22] MEDS: IBUPROFEN 600 MG TABLET PO ×2 (02:03→10:00)
[2020-09-22] MEDS: ACETAMINOPHEN 325 MG TABLET 650 MG PO ×2 (02:03→10:00)
[2020-09-22 05:38] LABS: Hematocrit 35.1 % (36-46)
[2020-09-22] MEDS: DOCUSATE 100 MG CAPSULE PO (10:00)
--- NOTE | 2020-09-22 14:03 | P.DS_ITS ---
History of Present Illness History of Present Illness Chief complaint: eval of labor Discharge Providers Provider Date of admission: 09/20/20 19:44 Discharge Date: 09/22/20 Primary care physician: Peggy Live MD Consults: 09/20/20 20:09 Consult to Anesthesiology Urgent Comment: Consulting Provider: Anesthesiologist Reason for consultation: labor 09/22/20 17:11 Consult to Engineering Lecturer Routine Comment: Discharge provider: Peggy Live MD Summary Hospital Course Discharge Diagnosis: Term gestation status post normal spontaneous vaginal delivery Hospital Course: Patient admitted to the hospital with premature rupture membranes. She received total 4 doses of IV antibiotics due to GBS positive status. She was given Pitocin to augment labor and proceeded to have a normal spontaneous vaginal delivery. She had unremarkable course and was discharged home on day 1. To follow up with me on Status at Discharge Cognitive/behavioral status at discharge: oriented Functional status at discharge: independent ambulation Overall status at discharge: patient is progressing back to baseline Exam Vital Signs (past 8 hours): Afebrile, vital signs are stable HEENT unremarkable Chest: Clear to auscultation Cor: Regular rate and rhythm without murmur Abdomen: Positive bowel sounds, soft, uterus at the umbilicus and firm and noted nontender Extremities no edema DTRs intact Objective Labs Result Diagrams: 09/22/20 05:25 Labs: Laboratory Results - last 24 hr 09/22/20 05:25 Hgb 12.0 Hct 35.1 L [facility] Social History (Updated 09/21/20 @ 17:41 by Peggy Live MD) number of children: 1 household members: spouse lives independently: Yes caregiver/support person: Yes housing: house pets and animals: Yes education level: college occupational status: employed current occupational exposures/hazards: No Smoking Status: Never smoker alcohol intake: never Discharge Assessment & Plan Assessment and Plan Assessment: day 1. Status post normal spontaneous vaginal delivery GBS positive status post 4 doses of IV antibiotics Plan of Treatment: Discharge home with follow-up with me in 2 weeks. Continue vitamin support Acidophilus Routine discharge instructions Discharge Plan Discharge Plan Patient Disposition: Home Discharge orders & Medications Prescriptions: New docusate sodium [DOK] 100 mg Capsule 100 mg PO BID Qty: 60 RF: 0 Continued Vitamins (PRENAVITE) 1 tab PO QDAY Qty: 0 RF: 0 docusate sodium 250 mg Capsule 250 mg PO DAILY Qty: 30 RF: 0 Follow up/Referrals: Peggy Live MD [Primary Care Provider] - Discharge Data Primary Care Provider: Peggy Live
[2020-09-22 14:31] VITALS: BP 108/68; PULSE 75; RESP 17; TEMP 37
== END 2020-09-22 15:45 | disposition home or self-care (01) | DRG 807 ==
PROVIDERS: Admitting Provider Family Medicine; Family Provider Family Medicine; PCP Family Medicine; Referring Provider Family Medicine; Visit Provider Family Medicine
DX: O99.824 Streptococcus B carrier state complicating childbirth (principal); Z37.0 Single live birth; O42.12 Full-term premature rupture of membranes, onset of labor more than 24 hours following rupture; Z3A.40 40 weeks gestation of pregnancy; O70.0 First degree perineal laceration during delivery; O77.0 Labor and delivery complicated by meconium in amniotic fluid; Z20.822 Contact with and (suspected) exposure to COVID-19
CPT/HCPCS: 01967; 36415; 59025; 59050; 84112; 85014; 85018; 85025; 86850; 86900; 86901; 87635; C9803; G0379; J2540; J2590

== ENCOUNTER → 2020-10-09 14:45 | Outpatient (CLI) | payer OTHER, SELFPAY ==
[2020-10-09] MEDS: COVID-19 VACC #1, MRNA(MOD) 100 MCG/0.5 ML VIAL IM (14:52)
== END ==
PROVIDERS: Family Provider Family Medicine; PCP Family Medicine; Visit Provider Internal Medicine
DX: Z23 Encounter for immunization (principal)
CPT/HCPCS: 0011A; 91301

== ENCOUNTER → 2020-11-06 14:41 | Outpatient (CLI) | payer OTHER, SELFPAY ==
[2020-11-06] MEDS: COVID-19 VACC #2, MRNA(MOD) 100 MCG/0.5 ML VIAL IM (14:56)
== END ==
PROVIDERS: Family Provider Family Medicine; PCP Family Medicine; Visit Provider Internal Medicine
DX: Z23 Encounter for immunization (principal)
CPT/HCPCS: 0012A; 91301

== ENCOUNTER 2020-12-30 11:15 | Outpatient (RCR) | payer OTHER, SELFPAY ==
--- NOTE | 2020-11-07 17:14 | PT.OIE ---
Current Diagnoses Separation of muscle (nontraumatic), other site (11/04/20) Visit Care Team Role Provider Type Peggy Live MD Attending Provider Physician Family Provider Primary Care Provider Referring Provider Specialty: Family Practice Address: [address] [place] [address] [place], [address] Email: [email or web address] Physical Therapy Initial Evaluation PT-OP-A Visit Information Start: 11/04/20 10:00 Freq: Status: Active Protocol: Document 11/04/20 10:29 [facility] (Rec: 11/04/20 10:37 [facility] [id number]) Out-Patient Physical Therapy Visit Information Visit Information Visit Type Initial Evaluation Visit Start Time 10:30 Visit Stop Time 11:15 Total Visit Minutes 45 Visit Number 1 Evaluation Information Evaluation Date 11/04/20 PT-OP-B Current Condition Start: 11/04/20 10:00 Freq: Status: Active Protocol: Document 11/04/20 10:29 [facility] (Rec: 11/04/20 10:37 [facility] [id number]) Current Condition History of Current Condition Onset Date 2020 Current Complaints abdominal weakness, diastasis, lacking a home program History of Current Condition Radha is a 35 year old female 6 weeks with her second baby. Pt reports her baby was born September 21 2020 with vaginal delivery. Has 6 week appointment on monday with Dr. Live, she has been wearing a binder some of the time. No symtoms of incontinence and no symptoms of pelvic floor. She has a little tenderness in her abdominal wall when she pushes on it. She did have numbness in her upper abdominal wall with . She seeks consult for her diastasis recti that began with this . She would like to be able to progress to a home core stabilization program safely. Treatment Goals Patient/Caregiver Goals pts goals include being educated on a core stabilization program she can do safely post and improving core strength Current Functional Impairments (Reported) Functional Limitations- Recreation/ pt has not yet returned to Hobbies exercise she has been careful with her core and not pushed it with any abdominal exercises yet. PT-OP-F Manual Assessment Start: 11/04/20 10:00 Freq: Status: Active Protocol: Document 11/04/20 10:30 [facility] (Rec: 04/17/21 13:54 [facility] [id number]) Manual Assessments Soft Tissue Assessment Soft Tissue Mobility Assessment assessment of the abdominal wall reveals a 2 finger width diastasis both proximal and distal to the umbilicus, no hard end feel, no coning present Tightness in the lumbar paraspinals with increase in lumbar lordosis Joint Mobility Assessment Joint Mobility Assessment SI instability B + ASLR B PT-OP-J Posture/Palpation/Skin Start: 11/04/20 10:00 Freq: Status: Active Protocol: Document 11/04/20 10:30 [facility] (Rec: 11/07/20 13:54 [facility] [id number]) Posture Evaluation Comments Posture Comments increased lumbar lordosis in supine and standing PT-OP-M Strength Start: 11/04/20 10:00 Freq: Status: Active Protocol: Document 11/04/20 10:30 [facility] (Rec: 11/07/20 13:54 [facility] [id number]) Trunk Strength Trunk Manual Muscle Testing Flexion 3 Fair Core Stabilization Decreased inner core stabilization post , diastasis recti Comments pt is approx 6 weeks and has been careful with her core following delivery due to diastasis. She is able to perform a small curl up of her trunk for me for evaluation of the diastasis. She is able to facilitate the Transverse abdominals with verbal cues but this is more difficult for her to do. +ASLR test with SLR PT-OP-Q Treatments Start: 11/04/20 10:00 Freq: Status: Active Protocol: Document 11/04/20 10:30 [facility] (Rec: 11/04/20 11:35 [facility] [id number]) Therapeutic Exercises Supine Exercises TA with SLR Reps/Minutes x 10 Comments left side SI tends to unlock, cues to engage to avoid popping TA with heel slides Supine Exercise Name TA with heel slides Side bilateral Reps/Minutes x 10 each Comments cues to keep SI stable TA with marches Supine Exercise Name TA with marches Side bilateral Reps/Minutes x 10 each Comments cues to keep the SI stable TA engagement Reps/Minutes x 5 Other Exercises cat cow exercises Reps/Minutes x 5 Comments cues for breath work with cat cow quadruped TA facilitation Reps/Minutes x 10 reps hold 10 seconds Manual Therapy Treatment Taping kinesiotape to diastasis recti Body Location abdominal wall, both proximal and distal to the umbilicus Type of Tape Kinesio Tape Comments kinesiotape was used to help with diastasis recti PT-OP-T Assessment and Plan Start: 11/04/20 10:00 Freq: Status: Active Protocol: Document 11/04/20 10:30 [facility] (Rec: 11/04/20 13:46 [facility] [id number]) Physical Therapy Assessment Rehab Potential Rehabilitation Potential Excellent Evaluation Complexity Number of Personal Factors/Comorbidities 0 Number of Body Systems Impaired 1-2 Clinical Presentation at Evaluation Stable Impairments Impairments Activity Tolerance,Functional Activities,Functional Mobility ,Soft Tissue Mobility,Strength Goals Radha lacks a home exercise Impairment Radha lacks a home post exercise program Electronic Organ Technician Goal (LTG) Radha is independent with a home program for her core without any increases in intra abdominal pressure that would strain her connective tissue of the linea alba. LTG Duration 8 weeks low back tightness Impairment low back tightness with anterior pelvic tilt Short Term Goal (STG) Radha is educated on stretches to help reduce low back tightness and improve the position of her pelvis. She is educated on how neutral spine encourages an improved recruitement of the core muscles STG Duration 4 weeks abdominal weakness with diastasis Impairment abdominal weakness with diastasis Short Term Goal (STG) Radha is educated on Transverse abdominal bracing prior to lifting her 3 year old or baby to avoid increased intra abdominal pressure and strain to the linea alba STG Duration 2 weeks Skilled Nursing Goal (LTG) Radha is educated in Transverse abdominal strengthing and she is able to perform a curl up engaging her core without increased abdominal seperation LTG Duration 8 weeks Assessment Summary Assessment Radha is a 35 year old female 2 Para 2 who is approximately 6 weeks . She has had 2 vaginal deliveries. Her first delivery she reports having a grade 1 tear and this second delivery she has one stitch for a mild tear. She reports healing well with no complaints of pain or urinary incontinence at this time. She is here for diastasis recti and would like a strengthening program she can do for her core. She has not been exercising up to this point to promote her abdominal wall to heal and has been using a abdominal stabilizer intermittently. She reports feeling ready to begin exercise. With evaluation for diastasis recti there is a 2 finger width gap both proximal and distal to the umbilicus. Radha does tend to press out with her abdominal wall with laughing. There is no coning present today with evaluation. With evaluation of her SI joint there is a + ASLR test greater on the left for SI instability. She was educated today in both pelvic floor and Transverse abdominal recruitment. We began a gentle program to encourage TA facilitation to help provide stability to her trunk and to stabilize the diastasis. She was encouraged to avoid any curl ups for a few more weeks until we can get her TA a little stronger. The plan will be to safely progress her to more challenging core exercises as she is able to keep her inner core engaged. I did also try a kinesiotape technique with her today that helps with closure of the connective tissue of the rectus abdominus. Radha responded very well to treatment with no pain. Physical Therapy Plan Frequency and Duration Frequency of Treatment 1x/Week Duration of Treatment 8 Plan of Care Start Date 11/04/20 Plan of Care End Date 12/30/20 Therapeutic Interventions Therapeutic Interventions Home Exercise Program,Manual Therapy,Neuromuscular Re- education,Self-Care/Home Management,Therapeutic Exercises Next Visit Focus/Plan Next Note Type Treatment Note Next Visit Plan Review TA stabilization both in quadruped and supine, progress lower abdominal stabilization as Radha is able to tolerate.
--- NOTE | 2020-11-07 17:14 | PT.OPPOC ---
Physical, Occupational & Speech Therapy At [facility] Current Diagnoses Separation of muscle (nontraumatic), other site (11/04/20) Visit Care Team Role Provider Type Peggy Live MD Attending Provider Physician Family Provider Primary Care Provider Referring Provider Specialty: Family Practice Address: [address] [place] [address], [id number] Email: [email or web address] Plan Of Care PT-OP-T Assessment and Plan Start: 11/04/20 10:00 Freq: Status: Active Protocol: Document 11/04/20 10:30 [facility] (Rec: 11/04/20 13:46 [facility] [email or web address]) Physical Therapy Assessment Rehab Potential Rehabilitation Potential Excellent Evaluation Complexity Number of Personal Factors/Comorbidities 0 Number of Body Systems Impaired 1-2 Clinical Presentation at Evaluation Stable Impairments Impairments Activity Tolerance,Functional Activities,Functional Mobility ,Soft Tissue Mobility,Strength Goals Radha lacks a home exercise Impairment Radha lacks a home post exercise program Door Installer Goal (LTG) Radha is independent with a home program for her core without any increases in intra abdominal pressure that would strain her connective tissue of the linea alba. LTG Duration 8 weeks low back tightness Impairment low back tightness with anterior pelvic tilt Short Term Goal (STG) Radha is educated on stretches to help reduce low back tightness and improve the position of her pelvis. She is educated on how neutral spine encourages an improved recruitment of the core muscles STG Duration 4 weeks abdominal weakness with diastasis Impairment abdominal weakness with diastasis recti Short Term Goal (STG) Radha is educated on Transverse abdominal bracing prior to lifting her 3 year old or baby to avoid increased intra abdominal pressure and strain to the linea alba STG Duration 2 weeks Fdc Goal (LTG) Radha is educated in Transverse abdominal strengthening and she is able to perform a curl up engaging her core without increased abdominal separation LTG Duration 8 weeks Assessment Summary Assessment Radha is a 35 year old female who is approximately 6 weeks . She has had 2 vaginal deliveries. Her first delivery she reports having a grade 1 tear and this second delivery she has one stitch for a mild tear. She reports healing well with no complaints of pain or urinary incontinence at this time. She is here for diastasis recti and would like a strengthening program she can do for her core. She has not been exercising up to this point to promote her abdominal wall to heal and has been using a abdominal stabilizer intermittently. She reports feeling ready to begin exercise. With evaluation for diastasis recti there is a 2 finger width gap both proximal and distal to the umbilicus. Radha does tend to press out with her abdominal wall with laughing. There is no coning present today with evaluation. With evaluation of her SI joint there is a + ASLR test greater on the left for SI instability. She was educated today in both pelvic floor and Transverse abdominal recruitment. We began a gentle program to encourage TA facilitation to help provide stabiity to her trunk and to stabilize the diastasis. She was encouraged to avoid any curl ups for a few more weeks until we can get her TA a little stronger. The plan will be to safely progress her to more challenging core exercises as she is able to keep her inner core engaged. I did also try a kinesiotape technique with her today that helps with closure of the connective tissue of the rectus abdominus. Radha responded very well to treatment with no pain. Physical Therapy Plan Frequency and Duration Frequency of Treatment 1x/Week Duration of Treatment 8 Plan of Care Start Date 11/04/20 Plan of Care End Date 12/30/20 Therapeutic Interventions Therapeutic Interventions Home Exercise Program,Manual Therapy,Neuromuscular Re- education,Self-Care/Home Management,Therapeutic Exercises Next Visit Focus/Plan Next Note Type Treatment Note Next Visit Plan Review TA stabilization both in quadruped and supine, progress lower abdominal stabilization as Radha is able to tolerate. Plan of Care Dates Plan of Care Start Date 11/04/20 Plan of Care End Date 12/30/20 Electronically Signed by: Lynda Arthur, PT 11/07/20 1708 Please Sign and Return: I have reviewed this Plan of Care and certify that the skilled therapy services above are required to meet the patient?s needs. Physician Signature Date Printed Name and Credentials Clinical Instructor Signature Printed Name and Credentials
--- NOTE | 2020-11-19 13:46 | PT.OTN ---
Current Diagnoses Separation of muscle (nontraumatic), other site (11/19/20) Physical Therapy Treatment Note PT-OP-A Visit Information Start: 11/04/20 10:00 Freq: Status: Active Protocol: Document 11/19/20 13:30 [facility] (Rec: 11/19/20 13:46 [facility] [email or web address]) Out-Patient Physical Therapy Visit Information Visit Information Visit Type Treatment Note Visit Start Time 11:15 Visit Stop Time 12:00 Total Visit Minutes 45 Visit Number 2 PT-OP-B Current Condition Start: 11/04/20 10:00 Freq: Status: Active Protocol: Document 11/04/20 10:29 [facility] (Rec: 11/04/20 10:37 [facility] [id number]) Current Condition History of Current Condition Onset Date 2020 Current Complaints abdominal weakness, diastasis, lacking a home program History of Current Condition Radha is a 35 year old female 6 weeks with her second baby. Pt reports her baby was born September 21 2020 with vaginal delivery. Has 6 week appointment on monday with Dr. Live, she has been wearing a binder some of the time. No symtoms of incontinence and no symptoms of pelvic floor. She has a little tenderness in her abdominal wall when she pushes on it. She did have numbness in her upper abdominal wall with . She seeks consult for her diastasis recti that began with this . She would like to be able to progress to a home core stabilization program safely. Treatment Goals Patient/Caregiver Goals pts goals include being educated on a core stabilization program she can do safely post and improving core strength Current Functional Impairments (Reported) Functional Limitations- Recreation/ pt has not yet returned to Hobbies exercise she has been careful with her core and not pushed it with any abdominal exercises yet. PT-OP-C Subjective Start: 11/04/20 10:00 Freq: Status: Active Protocol: Document 11/19/20 13:30 [facility] (Rec: 11/19/20 13:46 [facility] [email or web address]) OP-PT Subjective Patient Comments Patient Comments Radha reports she has been working on her exercises at home. PT-OP-F Manual Assessment Start: 11/04/20 10:00 Freq: Status: Active Protocol: Document 11/04/20 10:30 [facility] (Rec: 11/07/20 13:54 [facility] [id number]) Manual Assessments Soft Tissue Assessment Soft Tissue Mobility Assessment assessment of the abdominal wall reveals a 2 finger width diastasis both proximal and distal to the umbilicus, no hard end feel, no coning present Tightness in the lumbar paraspinals with increase in lumbar lordosis Joint Mobility Assessment Joint Mobility Assessment SI instability B + ASLR B PT-OP-J Posture/Palpation/Skin Start: 11/04/20 10:00 Freq: Status: Active Protocol: Document 11/04/20 10:30 [facility] (Rec: 11/07/20 13:54 [facility] [id number]) Posture Evaluation Comments Posture Comments increased lumbar lordosis in supine and standing PT-OP-M Strength Start: 11/04/20 10:00 Freq: Status: Active Protocol: Document 11/04/20 10:30 [facility] (Rec: 11/07/20 13:54 [facility] [id number]) Trunk Strength Trunk Manual Muscle Testing Flexion 3 Fair Core Stabilization Decreased inner core stabilization post , diastasis recti Comments pt is approx 6 weeks and has been careful with her core following delivery due to diastasis. She is able to perform a small curl up of her trunk for me for evaluation of the diastasis. She is able to facilitate the Transverse abdominals with verbal cues but this is more difficult for her to do. +ASLR test with SLR PT-OP-Q Treatments Start: 11/04/20 10:00 Freq: Status: Active Protocol: Document 11/19/20 13:30 [facility] (Rec: 11/19/20 13:46 [facility] [email or web address]) Therapeutic Exercises Supine Exercises The hundred pilates Comments with TA engagement reverse sit up Comments with TA engagement rolling like a ball Reps/Minutes x 5 TA stabilization with crunches Comments hands out in front was more supportive lower abdominal progression Supine Exercise Name lower abdominal progression Comments level 1 a-b, level 2 TA with SLR Reps/Minutes x 10 Comments left side SI tends to unlock, cues to engage to avoid popping TA with heel slides Supine Exercise Name TA with heel slides Side bilateral Reps/Minutes x 10 each Comments cues to keep SI stable TA with marches Supine Exercise Name TA with marches Side bilateral Reps/Minutes x 10 each Comments cues to keep the SI stable TA engagement Reps/Minutes x 5 Other Exercises foam roll stretch Reps/Minutes 3 min quadruped with opp arm chico leg Reps/Minutes x 10 with opp arm and leg cat cow exercises Reps/Minutes x 5 Comments cues for breath work with cat cow quadruped TA facilitation Reps/Minutes x 10 reps hold 10 seconds PT-OP-T Assessment and Plan Start: 11/04/20 10:00 Freq: Status: Active Protocol: Document 11/19/20 13:30 [facility] (Rec: 11/19/20 13:46 [facility] [email or web address]) Physical Therapy Assessment Assessment Summary Assessment Radha did really well with her stabilization program this last week and tolerated today 's treatment well. She is showing improvements with lower abdominal activation and was able to tolerate adding crunches today without any abdominal bulging. Progress to plank and sidelying hip series next visit Physical Therapy Plan Frequency and Duration Frequency of Treatment 1x/Week Duration of Treatment 8 Plan of Care Start Date 11/04/20 Plan of Care End Date 12/30/20 Therapeutic Interventions Therapeutic Interventions Home Exercise Program,Manual Therapy,Neuromuscular Re- education,Self-Care/Home Management,Therapeutic Exercises Next Visit Focus/Plan Next Note Type Treatment Note Next Visit Plan continue to progress abdominal stabilization, work towards plank and lateral hip stabilization with core activation next visit.
--- NOTE | 2020-11-26 17:58 | PT.OTN ---
Current Diagnoses Separation of muscle (nontraumatic), other site (11/26/20) Physical Therapy Treatment Note PT-OP-A Visit Information Start: 11/04/20 10:00 Freq: Status: Active Protocol: Document 11/26/20 17:55 [facility] (Rec: 11/26/20 17:58 [facility] [email or web address]) Out-Patient Physical Therapy Visit Information Visit Information Visit Type Treatment Note Visit Start Time 01:15 Visit Stop Time 12:00 Total Visit Minutes 45 Visit Number 3 PT-OP-B Current Condition Start: 11/04/20 10:00 Freq: Status: Active Protocol: Document 11/04/20 10:29 [facility] (Rec: 11/04/20 10:37 [facility] [id number]) Current Condition History of Current Condition Onset Date 2020 Current Complaints abdominal weakness, diastasis, lacking a home program History of Current Condition Radha is a 35 year old female 6 weeks with her second baby. Pt reports her baby was born September 21 2020 with vaginal delivery. Has 6 week appointment on monday with Dr. Live, she has been wearing a binder some of the time. No symtoms of incontinence and no symptoms of pelvic floor. She has a little tenderness in her abdominal wall when she pushes on it. She did have numbness in her upper abdominal wall with . She seeks consult for her diastasis recti that began with this . She would like to be able to progress to a home core stabilization program safely. Treatment Goals Patient/Caregiver Goals pts goals include being educated on a core stabilization program she can do safely post and improving core strength Current Functional Impairments (Reported) Functional Limitations- Recreation/ pt has not yet returned to Hobbies exercise she has been careful with her core and not pushed it with any abdominal exercises yet. PT-OP-C Subjective Start: 11/04/20 10:00 Freq: Status: Active Protocol: Document 11/26/20 17:55 [facility] (Rec: 11/26/20 17:58 [facility] [email or web address]) OP-PT Subjective Patient Comments Patient Comments Radha reports she has been progressing well with her abdominal stabilization exercises and feeling stronger . She has also been using the dry brush. She ordered a foam roll for home PT-OP-F Manual Assessment Start: 11/04/20 10:00 Freq: Status: Active Protocol: Document 11/04/20 10:30 [facility] (Rec: 11/07/20 13:54 [facility] [id number]) Manual Assessments Soft Tissue Assessment Soft Tissue Mobility Assessment assessment of the abdominal wall reveals a 2 finger width diastasis both proximal and distal to the umbilicus, no hard end feel, no coning present Tightness in the lumbar paraspinals with increase in lumbar lordosis Joint Mobility Assessment Joint Mobility Assessment SI instability B + ASLR B PT-OP-J Posture/Palpation/Skin Start: 11/04/20 10:00 Freq: Status: Active Protocol: Document 11/04/20 10:30 [facility] (Rec: 11/07/20 13:54 [facility] [id number]) Posture Evaluation Comments Posture Comments increased lumbar lordosis in supine and standing PT-OP-M Strength Start: 11/04/20 10:00 Freq: Status: Active Protocol: Document 11/04/20 10:30 [facility] (Rec: 11/07/20 13:54 [facility] [id number]) Trunk Strength Trunk Manual Muscle Testing Flexion 3 Fair Core Stabilization Decreased inner core stabilization post , diastasis recti Comments pt is approx 6 weeks and has been careful with her core following delivery due to diastasis. She is able to perform a small curl up of her trunk for me for evaluation of the diastasis. She is able to facilitate the Transverse abdominals with verbal cues but this is more difficult for her to do. +ASLR test with SLR PT-OP-Q Treatments Start: 11/04/20 10:00 Freq: Status: Active Protocol: Document 11/26/20 17:55 [facility] (Rec: 11/26/20 17:58 [facility] [email or web address]) Therapeutic Exercises Supine Exercises The hundred pilates Comments with TA engagement reverse sit up Comments with TA engagement rolling like a ball Reps/Minutes x 5 TA stabilization with crunches Comments hands out in front was more supportive lower abdominal progression Supine Exercise Name lower abdominal progression Comments level 1 a-b, level 2 TA with SLR Reps/Minutes x 10 Comments left side SI tends to unlock, cues to engage to avoid popping TA with heel slides Supine Exercise Name TA with heel slides Side bilateral Reps/Minutes x 10 each Comments cues to keep SI stable TA with marches Supine Exercise Name TA with marches Side bilateral Reps/Minutes x 10 each Comments cues to keep the SI stable TA engagement Reps/Minutes x 5 Other Exercises horizontal abduction with theraband over the foam roll Reps/Minutes 3 x 10 reps plank stabilization exercises Reps/Minutes x 5 Comments forearms and on hands foam roll stretch Reps/Minutes 3 min quadruped with opp arm chico leg Reps/Minutes x 10 with opp arm and leg cat cow exercises Reps/Minutes x 5 Comments cues for breath work with cat cow quadruped TA facilitation Reps/Minutes x 10 reps hold 10 seconds PT-OP-T Assessment and Plan Start: 11/04/20 10:00 Freq: Status: Active Protocol: Document 11/26/20 17:55 [facility] (Rec: 11/26/20 17:58 [facility] [email or web address]) Physical Therapy Assessment Assessment Summary Assessment Radha continues to make gains with abdominal stabilization and is showing only a 1 finger width separation at this time controlled by TA stabilization . She is tolerating the addition of new exercises well . I did start working on opening up her chest and working on her scapula stabilization due to scapula winging. Physical Therapy Plan Frequency and Duration Frequency of Treatment 1x/Week Duration of Treatment 8 Plan of Care Start Date 11/04/20 Plan of Care End Date 12/30/20 Therapeutic Interventions Therapeutic Interventions Home Exercise Program,Manual Therapy,Neuromuscular Re- education,Self-Care/Home Management,Therapeutic Exercises Next Visit Focus/Plan Next Note Type Treatment Note Next Visit Plan continue to progress abdominal stabilization, work towards plank and lateral hip stabilization with core activation next visit.
--- NOTE | 2020-12-02 13:24 | PT.OTN ---
Current Diagnoses Separation of muscle (nontraumatic), other site (12/02/20) Physical Therapy Treatment Note PT-OP-A Visit Information Start: 11/04/20 10:00 Freq: Status: Active Protocol: Document 12/02/20 11:17 [facility] (Rec: 12/02/20 12:06 [facility] [id number]) Out-Patient Physical Therapy Visit Information Visit Information Visit Type Treatment Note Visit Start Time 11:15 Visit Stop Time 12:00 Total Visit Minutes 45 Visit Number 4 PT-OP-B Current Condition Start: 11/04/20 10:00 Freq: Status: Active Protocol: Document 11/04/20 10:29 [facility] (Rec: 11/04/20 10:37 [facility] [id number]) Current Condition History of Current Condition Onset Date 2020 Current Complaints abdominal weakness, diastasis, lacking a home program History of Current Condition Radha is a 35 year old female 6 weeks with her second baby. Pt reports her baby was born September 21 2020 with vaginal delivery. Has 6 week appointment on monday with Dr. Live, she has been wearing a binder some of the time. No symtoms of incontinence and no symptoms of pelvic floor. She has a little tenderness in her abdominal wall when she pushes on it. She did have numbness in her upper abdominal wall with . She seeks consult for her diastasis recti that began with this . She would like to be able to progress to a home core stabilization program safely. Treatment Goals Patient/Caregiver Goals pts goals include being educated on a core stabilization program she can do safely post and improving core strength Current Functional Impairments (Reported) Functional Limitations- Recreation/ pt has not yet returned to Hobbies exercise she has been careful with her core and not pushed it with any abdominal exercises yet. PT-OP-C Subjective Start: 11/04/20 10:00 Freq: Status: Active Protocol: Document 12/02/20 11:17 [facility] (Rec: 12/02/20 12:06 [facility] [id number]) OP-PT Subjective Patient Comments Patient Comments pt reports this has been a busy week with her oput [facility]. She feels good with her exercises without any c/o pain PT-OP-F Manual Assessment Start: 11/04/20 10:00 Freq: Status: Active Protocol: Document 11/04/20 10:30 [facility] (Rec: 11/07/20 13:54 [facility] [id number]) Manual Assessments Soft Tissue Assessment Soft Tissue Mobility Assessment assessment of the abdominal wall reveals a 2 finger width diastasis both proximal and distal to the umbilicus, no hard end feel, no coning present Tightness in the lumbar paraspinals with increase in lumbar lordosis Joint Mobility Assessment Joint Mobility Assessment SI instability B + ASLR B PT-OP-J Posture/Palpation/Skin Start: 11/04/20 10:00 Freq: Status: Active Protocol: Document 11/04/20 10:30 [facility] (Rec: 11/07/20 13:54 [facility] [id number]) Posture Evaluation Comments Posture Comments increased lumbar lordosis in supine and standing PT-OP-M Strength Start: 11/04/20 10:00 Freq: Status: Active Protocol: Document 11/04/20 10:30 [facility] (Rec: 11/07/20 13:54 [facility] [id number]) Trunk Strength Trunk Manual Muscle Testing Flexion 3 Fair Core Stabilization Decreased inner core stabilization post , diastasis recti Comments pt is approx 6 weeks and has been careful with her core following delivery due to diastasis. She is able to perform a small curl up of her trunk for me for evaluation of the diastasis. She is able to facilitate the Transverse abdominals with verbal cues but this is more difficult for her to do. +ASLR test with SLR PT-OP-Q Treatments Start: 11/04/20 10:00 Freq: Status: Active Protocol: Document 12/02/20 11:17 [facility] (Rec: 12/02/20 12:06 [facility] [id number]) Therapeutic Exercises Supine Exercises The hundred pilates Comments with TA engagement reverse sit up Comments with TA engagement rolling like a ball Reps/Minutes x 5 TA stabilization with crunches Comments hands out in front was more supportive lower abdominal progression Supine Exercise Name lower abdominal progression Comments level 1 a-b, level 2 TA with marches Supine Exercise Name TA with marches Side bilateral Reps/Minutes x 10 each Comments cues to keep the SI stable Prone Exercises cobra and updog Comments worked on both positions Other Exercises plank stabilization exercises Reps/Minutes x 5 Comments forearms and on hands foam roll stretch Reps/Minutes 3 min quadruped with opp arm chico leg Reps/Minutes x 10 with opp arm and leg quadruped TA facilitation Reps/Minutes x 10 reps hold 10 seconds PT-OP-T Assessment and Plan Start: 11/04/20 10:00 Freq: Status: Active Protocol: Document 12/02/20 11:17 [facility] (Rec: 12/02/20 13:23 [facility] [id number]) Physical Therapy Assessment Assessment Summary Assessment Radha continues to progress well with stabilization. She is tight in the anterior chest and pectoralis and has ordered a foam roll for home. I added in both cobra and up dog today to open up the chest. We worked some on lowering from plank into up dog. we worked on reverse crunches on abdominal stabilization to roll back one segment at a time. No abdominal bulging is noted and no c/o pain at the linea alba Physical Therapy Plan Frequency and Duration Frequency of Treatment 1x/Week Duration of Treatment 8 Plan of Care Start Date 11/04/20 Plan of Care End Date 12/30/20 Therapeutic Interventions Therapeutic Interventions Home Exercise Program,Manual Therapy,Neuromuscular Re- education,Self-Care/Home Management,Therapeutic Exercises Next Visit Focus/Plan Next Note Type Treatment Note Next Visit Plan continue to progress abdominal stabilization, work towards plank and lateral hip stabilization with core activation next visit.
--- NOTE | 2020-12-10 13:40 | PT.OTN ---
Current Diagnoses Separation of muscle (nontraumatic), other site (12/10/20) Physical Therapy Treatment Note PT-OP-A Visit Information Start: 11/04/20 10:00 Freq: Status: Active Protocol: Document 12/10/20 11:23 [facility] (Rec: 12/10/20 12:16 [facility] [id number]) Out-Patient Physical Therapy Visit Information Visit Information Visit Type Treatment Note Visit Start Time 11:15 Visit Stop Time 12:00 Total Visit Minutes 45 Visit Number 5 PT-OP-B Current Condition Start: 11/04/20 10:00 Freq: Status: Active Protocol: Document 11/04/20 10:29 [facility] (Rec: 11/04/20 10:37 [facility] [id number]) Current Condition History of Current Condition Onset Date 2020 Current Complaints abdominal weakness, diastasis, lacking a home program History of Current Condition Radha is a 35 year old female 6 weeks with her second baby. Pt reports her baby was born September 21 2020 with vaginal delivery. Has 6 week appointment on monday with Dr. Live, she has been wearing a binder some of the time. No symtoms of incontinence and no symptoms of pelvic floor. She has a little tenderness in her abdominal wall when she pushes on it. She did have numbness in her upper abdominal wall with . She seeks consult for her diastasis recti that began with this . She would like to be able to progress to a home core stabilization program safely. Treatment Goals Patient/Caregiver Goals pts goals include being educated on a core stabilization program she can do safely post and improving core strength Current Functional Impairments (Reported) Functional Limitations- Recreation/ pt has not yet returned to Hobbies exercise she has been careful with her core and not pushed it with any abdominal exercises yet. PT-OP-C Subjective Start: 11/04/20 10:00 Freq: Status: Active Protocol: Document 12/10/20 11:23 [facility] (Rec: 12/10/20 12:16 [facility] [id number]) OP-PT Subjective Patient Comments Patient Comments pt reports it has been much easier to engage her core and finding when she picks up her daughter she is engaging her core more. Patient Reported Progress Improving PT-OP-F Manual Assessment Start: 11/04/20 10:00 Freq: Status: Active Protocol: Document 11/04/20 10:30 [facility] (Rec: 11/07/20 13:54 [facility] [id number]) Manual Assessments Soft Tissue Assessment Soft Tissue Mobility Assessment assessment of the abdominal wall reveals a 2 finger width diastasis both proximal and distal to the umbilicus, no hard end feel, no coning present Tightness in the lumbar paraspinals with increase in lumbar lordosis Joint Mobility Assessment Joint Mobility Assessment SI instability B + ASLR B PT-OP-J Posture/Palpation/Skin Start: 11/04/20 10:00 Freq: Status: Active Protocol: Document 11/04/20 10:30 [facility] (Rec: 11/07/20 13:54 [facility] [id number]) Posture Evaluation Comments Posture Comments increased lumbar lordosis in supine and standing PT-OP-M Strength Start: 11/04/20 10:00 Freq: Status: Active Protocol: Document 11/04/20 10:30 [facility] (Rec: 11/07/20 13:54 [facility] [id number]) Trunk Strength Trunk Manual Muscle Testing Flexion 3 Fair Core Stabilization Decreased inner core stabilization post , diastasis recti Comments pt is approx 6 weeks and has been careful with her core following delivery due to diastasis. She is able to perform a small curl up of her trunk for me for evaluation of the diastasis. She is able to facilitate the Transverse abdominals with verbal cues but this is more difficult for her to do. +ASLR test with SLR PT-OP-Q Treatments Start: 11/04/20 10:00 Freq: Status: Active Protocol: Document 12/10/20 11:23 [facility] (Rec: 12/10/20 12:16 [facility] [id number]) Therapeutic Exercises Supine Exercises The hundred pilates Comments with TA engagement reverse sit up Comments with TA engagement rolling like a ball Reps/Minutes x 5 TA stabilization with crunches Comments hands out in front was more supportive lower abdominal progression Supine Exercise Name lower abdominal progression Comments level 1 a-b, level 2 TA with SLR Reps/Minutes x 10 Comments left side SI tends to unlock, cues to engage to avoid popping TA with heel slides Supine Exercise Name TA with heel slides Side bilateral Reps/Minutes x 10 each Comments cues to keep SI stable TA with marches Supine Exercise Name TA with marches Side bilateral Reps/Minutes x 10 each Comments cues to keep the SI stable TA engagement Reps/Minutes x 5 Prone Exercises cobra and updog Comments worked on both positions Other Exercises qudrped sidebends Other Exercise Name quadruped sidebends Reps/Minutes x 10 each side plank stabilization exercises Reps/Minutes x 5 Comments forearms and on hands quadruped with opp arm chcio leg Reps/Minutes x 10 with opp arm and leg cat cow exercises Reps/Minutes x 5 Comments cues for breath work with cat cow quadruped TA facilitation Reps/Minutes x 10 reps hold 10 seconds PT-OP-T Assessment and Plan Start: 11/04/20 10:00 Freq: Status: Active Protocol: Document 12/10/20 13:39 [facility] (Rec: 12/10/20 13:40 [facility] [id number]) Physical Therapy Assessment Assessment Summary Assessment Radha continues to progress well, hamstring length improving and scapula stabilization also improving. I added in side plank exercises today and she tolerated these well. Progress to standing dynamic exercises next visit Physical Therapy Plan Frequency and Duration Frequency of Treatment 1x/Week Duration of Treatment 8 Plan of Care Start Date 11/04/20 Plan of Care End Date 12/30/20 Therapeutic Interventions Therapeutic Interventions Home Exercise Program,Manual Therapy,Neuromuscular Re- education,Self-Care/Home Management,Therapeutic Exercises Next Visit Focus/Plan Next Note Type Treatment Note Next Visit Plan continue to progress abdominal stabilization, work towards plank and lateral hip stabilization with core activation next visit.
--- NOTE | 2020-12-17 13:16 | PT.OTN ---
Current Diagnoses Separation of muscle (nontraumatic), other site (12/17/20) Physical Therapy Treatment Note PT-OP-A Visit Information Start: 11/04/20 10:00 Freq: Status: Active Protocol: Document 12/17/20 11:20 [facility] (Rec: 12/17/20 13:16 [facility] [id number]) Out-Patient Physical Therapy Visit Information Visit Information Visit Type Treatment Note Visit Start Time 11:20 Visit Stop Time 12:05 Total Visit Minutes 45 Visit Number 6 PT-OP-B Current Condition Start: 11/04/20 10:00 Freq: Status: Active Protocol: Document 11/04/20 10:29 [facility] (Rec: 11/04/20 10:37 [facility] [id number]) Current Condition History of Current Condition Onset Date 2020 Current Complaints abdominal weakness, diastasis, lacking a home program History of Current Condition Radha is a 35 year old female 6 weeks with her second baby. Pt reports her baby was born September 21 2020 with vaginal delivery. Has 6 week appointment on monday with Dr. Live, she has been wearing a binder some of the time. No symtoms of incontinence and no symptoms of pelvic floor. She has a little tenderness in her abdominal wall when she pushes on it. She did have numbness in her upper abdominal wall with . She seeks consult for her diastasis recti that began with this . She would like to be able to progress to a home core stabilization program safely. Treatment Goals Patient/Caregiver Goals pts goals include being educated on a core stabilization program she can do safely post and improving core strength Current Functional Impairments (Reported) Functional Limitations- Recreation/ pt has not yet returned to Hobbies exercise she has been careful with her core and not pushed it with any abdominal exercises yet. PT-OP-C Subjective Start: 11/04/20 10:00 Freq: Status: Active Protocol: Document 12/17/20 11:20 [facility] (Rec: 12/17/20 13:16 [facility] [id number]) OP-PT Subjective Patient Comments Patient Comments Radha reports she has been doing some videos and her quads are sore today from squats. She has questions on a couple of the exercises in the videos. No complaints of abdominal pain but also she doesn't want to overdo. PT-OP-F Manual Assessment Start: 11/04/20 10:00 Freq: Status: Active Protocol: Document 11/04/20 10:30 [facility] (Rec: 11/07/20 13:54 [facility] [id number]) Manual Assessments Soft Tissue Assessment Soft Tissue Mobility Assessment assessment of the abdominal wall reveals a 2 finger width diastasis both proximal and distal to the umbilicus, no hard end feel, no coning present Tightness in the lumbar paraspinals with increase in lumbar lordosis Joint Mobility Assessment Joint Mobility Assessment SI instability B + ASLR B PT-OP-J Posture/Palpation/Skin Start: 11/04/20 10:00 Freq: Status: Active Protocol: Document 11/04/20 10:30 [facility] (Rec: 11/07/20 13:54 [facility] [id number]) Posture Evaluation Comments Posture Comments increased lumbar lordosis in supine and standing PT-OP-M Strength Start: 11/04/20 10:00 Freq: Status: Active Protocol: Document 11/04/20 10:30 [facility] (Rec: 11/07/20 13:54 [facility] [id number]) Trunk Strength Trunk Manual Muscle Testing Flexion 3 Fair Core Stabilization Decreased inner core stabilization post , diastasis recti Comments pt is approx 6 weeks and has been careful with her core following delivery due to diastasis. She is able to perform a small curl up of her trunk for me for evaluation of the diastasis. She is able to facilitate the Transverse abdominals with verbal cues but this is more difficult for her to do. +ASLR test with SLR PT-OP-Q Treatments Start: 11/04/20 10:00 Freq: Status: Active Protocol: Document 12/17/20 11:20 [facility] (Rec: 12/17/20 13:16 [facility] [id number]) Therapeutic Exercises Supine Exercises lower abdominal progression Supine Exercise Name lower abdominal progression Comments level 1 a-b, level 2 Prone Exercises prone thoracic extension Reps/Minutes x 10 reps cobra and updog Comments worked on both positions Sidelying Exercises clam shells Reps/Minutes 2x 10 reps sidelying hip series Comments 10 reps each Other Exercises side steps with theraband Reps/Minutes x 20 each direction standing single leg squats Reps/Minutes x 10 qudrped sidebends Other Exercise Name quadruped sidebends Reps/Minutes x 10 each side horizontal abduction with theraband over the foam roll Reps/Minutes 3 x 10 reps plank stabilization exercises Reps/Minutes x 5 Comments forearms and on hands foam roll stretch Reps/Minutes 3 min quadruped with opp arm chico leg Reps/Minutes x 10 with opp arm and leg cat cow exercises Reps/Minutes x 5 Comments cues for breath work with cat cow quadruped TA facilitation Reps/Minutes x 10 reps hold 10 seconds PT-OP-T Assessment and Plan Start: 11/04/20 10:00 Freq: Status: Active Protocol: Document 12/17/20 11:20 [facility] (Rec: 12/17/20 13:16 [facility] [email or web address]) Physical Therapy Plan Frequency and Duration Frequency of Treatment 1x/Week Duration of Treatment 8 Plan of Care Start Date 11/04/20 Plan of Care End Date 12/30/20 Therapeutic Interventions Therapeutic Interventions Home Exercise Program,Manual Therapy,Neuromuscular Re- education,Self-Care/Home Management,Therapeutic Exercises Next Visit Focus/Plan Next Note Type Treatment Note Next Visit Plan review new standing exercises and sidelying hip series next visit
--- NOTE | 2020-12-30 14:29 | PT.OTN ---
Current Diagnoses Separation of muscle (nontraumatic), other site (12/30/20) Physical Therapy Treatment Note PT-OP-A Visit Information Start: 11/04/20 10:00 Freq: Status: Active Protocol: Document 12/30/20 14:24 [facility] (Rec: 12/30/20 14:29 [facility] [email or web address]) Out-Patient Physical Therapy Visit Information Visit Information Visit Type Treatment Note Visit Start Time 11:15 Visit Stop Time 12:00 Total Visit Minutes 45 Visit Number 7 PT-OP-B Current Condition Start: 11/04/20 10:00 Freq: Status: Active Protocol: Document 11/04/20 10:29 [facility] (Rec: 11/04/20 10:37 [facility] [id number]) Current Condition History of Current Condition Onset Date 2020 Current Complaints abdominal weakness, diastasis, lacking a home program History of Current Condition Radha is a 35 year old female 6 weeks with her second baby. Pt reports her baby was born September 21 2020 with vaginal delivery. Has 6 week appointment on monday with Dr. Live, she has been wearing a binder some of the time. No symtoms of incontinence and no symptoms of pelvic floor. She has a little tenderness in her abdominal wall when she pushes on it. She did have numbness in her upper abdominal wall with . She seeks consult for her diastasis recti that began with this . She would like to be able to progress to a home core stabilization program safely. Treatment Goals Patient/Caregiver Goals pts goals include being educated on a core stabilization program she can do safely post and improving core strength Current Functional Impairments (Reported) Functional Limitations- Recreation/ pt has not yet returned to Hobbies exercise she has been careful with her core and not pushed it with any abdominal exercises yet. PT-OP-C Subjective Start: 11/04/20 10:00 Freq: Status: Active Protocol: Document 12/30/20 14:24 [facility] (Rec: 12/30/20 14:29 [facility] [email or web address]) OP-PT Subjective Patient Comments Patient Comments Radha reports she is doing well, feeling stronger in her core. She is feeling independent with her home exercise program. PT-OP-F Manual Assessment Start: 11/04/20 10:00 Freq: Status: Active Protocol: Document 11/04/20 10:30 [facility] (Rec: 11/07/20 13:54 [facility] [id number]) Manual Assessments Soft Tissue Assessment Soft Tissue Mobility Assessment assessment of the abdominal wall reveals a 2 finger width diastasis both proximal and distal to the umbilicus, no hard end feel, no coning present Tightness in the lumbar paraspinals with increase in lumbar lordosis Joint Mobility Assessment Joint Mobility Assessment SI instability B + ASLR B PT-OP-J Posture/Palpation/Skin Start: 11/04/20 10:00 Freq: Status: Active Protocol: Document 11/04/20 10:30 [facility] (Rec: 11/07/20 13:54 [facility] [id number]) Posture Evaluation Comments Posture Comments increased lumbar lordosis in supine and standing PT-OP-M Strength Start: 11/04/20 10:00 Freq: Status: Active Protocol: Document 11/04/20 10:30 [facility] (Rec: 11/07/20 13:54 [facility] [id number]) Trunk Strength Trunk Manual Muscle Testing Flexion 3 Fair Core Stabilization Decreased inner core stabilization post , diastasis recti Comments pt is approx 6 weeks and has been careful with her core following delivery due to diastasis. She is able to perform a small curl up of her trunk for me for evaluation of the diastasis. She is able to facilitate the Transverse abdominals with verbal cues but this is more difficult for her to do. +ASLR test with SLR PT-OP-Q Treatments Start: 11/04/20 10:00 Freq: Status: Active Protocol: Document 12/30/20 14:24 [facility] (Rec: 12/30/20 14:29 [facility] [id number]) Therapeutic Exercises Supine Exercises reverse sit up Comments with TA engagement rolling like a ball Reps/Minutes x 5 lower abdominal progression Supine Exercise Name lower abdominal progression Comments level 1 a-b, level 2 TA with marches Supine Exercise Name TA with marches Side bilateral Reps/Minutes x 10 each Comments cues to keep the SI stable Prone Exercises cobra and updog Comments worked on both positions Other Exercises standing single leg squats Reps/Minutes x 10 qudrped sidebends Other Exercise Name quadruped sidebends Reps/Minutes x 10 each side plank stabilization exercises Reps/Minutes x 5 Comments forearms and on hands foam roll stretch Reps/Minutes 3 min quadruped with opp arm chico leg Reps/Minutes x 10 with opp arm and leg cat cow exercises Reps/Minutes x 5 Comments cues for breath work with cat cow quadruped TA facilitation Reps/Minutes x 10 reps hold 10 seconds PT-OP-T Assessment and Plan Start: 11/04/20 10:00 Freq: Status: Active Protocol: Document 12/30/20 14:24 [facility] (Rec: 12/30/20 14:29 [facility] [id number]) Physical Therapy Assessment Goals Radha lacks a home exercise Impairment Radha lacks a home post exercise program Senior Executive Assistant Goal (LTG) Radha is independent with a home program for her core without any increases in intra abdominal pressure that would strain her connective tissue of the linea alba. GOAL MET LTG Duration 8 weeks low back tightness Impairment low back tightness with anterior pelvic tilt Short Term Goal (STG) Radha is educated on stretches to help reduce low back tightness and improve the position of her pelvis. She is educated on how neutral spine encourages an improved recruitement of the core muscles GOAL MET with good improvement of lumbar flexibility now STG Duration 4 weeks abdominal weakness with diastasis Impairment abdominal weakness with diastasis Short Term Goal (STG) Radha is educated on Transverse abdominal bracing prior to lifting her 3 year old or baby to avoid increased intra abdominal pressure and strain to the linea alba GOAL MET STG Duration 2 weeks Senior Executive Assistant Goal (LTG) Radha is educated in Transverse abdominal strengthing and she is able to perform a curl up engaging her core without increased abdominal separation GOAL MET LTG Duration 8 weeks Assessment Summary Assessment Radha responded well to PT for post core strengthening. She is doing great at this time, no complains of pain, and feels independent with her HEP. She will be discharged to a home program. Physical Therapy Plan Discharge Physical Therapy Discharge Reasons Goals Met
== END 2020-12-30 15:28 | disposition home or self-care (01) ==
LOC: PHYS 11:15
PROVIDERS: Family Provider Family Medicine; PCP Family Medicine; Referring Provider Family Medicine; Visit Provider Family Medicine
DX: M62.08 Separation of muscle (nontraumatic), other site (principal)
CPT/HCPCS: 97110; 97161

== ENCOUNTER → 2021-05-26 16:27 | Outpatient (CLI) | payer OTHER, SELFPAY | PROVIDERS: Family Provider Family Medicine; PCP Family Medicine; Referring Provider Internal Medicine; Visit Provider Internal Medicine | DX: Z23 Encounter for immunization (principal) | CPT/HCPCS: 90471; 90686 ==

== ENCOUNTER → 2021-06-04 10:10 | Outpatient (CLI) | payer OTHER, SELFPAY ==
[2021-06-04] MEDS: COVID-19 VACC #3, MRNA(MOD) 50 MCG/0.25 ML VIAL IM (10:21)
== END ==
PROVIDERS: Family Provider Family Medicine; PCP Family Medicine; Visit Provider Internal Medicine
DX: Z23 Encounter for immunization (principal)
CPT/HCPCS: 0013A; 91301